=== PATIENT | female | born 1970 | race Caucasian/White ===

== ENCOUNTER → 2017-10-22 | Outpatient (CLI) | payer OTHER ==
--- NOTE | 2017-10-24 08:50 | MM ---
Reason for exam: screening (asymptomatic). Last mammogram was performed 2 years and 5 months ago. History: Family history of breast cancer in maternal grandmother at age 49. Took hormonal contraceptives for 2 years. Physical Findings: A clinical breast exam by your physician is recommended on an annual basis and results should be correlated with mammographic findings. MG 3D Screening Mammo W/Cad Bilateral CC and MLO view(s) were taken. Prior study comparison: May 19, 2015, bilateral MG screening mammo w CAD. The breast tissue is heterogeneously dense. This may lower the sensitivity of mammography. No significant changes when compared with prior studies. ASSESSMENT: Negative, BI-RAD 1 RECOMMENDATION: Routine screening mammogram of both breasts in 1 year.
== END | disposition home or self-care (01) ==
LOC: RADMAMWWP 14:05
PROVIDERS: ATTEND Family Medicine
DX: Z12.31 Encounter for screening mammogram for malignant neoplasm of breast (principal)
CPT/HCPCS: 77063; 77067

== ENCOUNTER → 2017-12-19 | Outpatient (CLI) | payer OTHER ==
--- NOTE | 2017-12-19 15:54 | CT ---
EXAMINATION TYPE: CT urogram wo/w con DATE OF EXAM: 12/19/2017 COMPARISON: NONE HISTORY: Microscopic and gross hematuria x 6-[address] DLP: 1967 mGycm CONTRAST: Performed and without and with IV Contrast, patient injected with 100 mL of Isovue M300. CT Urography was performed with unenhanced followed by enhanced images of the kidneys, ureters and ur inary bladder. Delayed images were obtained. 3d reconstruction was perfromed at a separate work sta tion. FINDINGS: KIDNEYS/BLADDER: No hydronephrosis. No nephrolithiasis. No distinct renal mass. Urinary bladder gr ossly unremarkable. LUNG BASES-: No visible nodule. No infiltrate. LIVER/GB: Small calcified gallstone noted. No space occupying hepatic lesion. Biliary tree is of norm al caliber. PANCREAS: No inflammation. No distinct mass. SPLEEN: No splenic enlargement. No lesion seen. ADRENALS: No nodule. No thickening. BOWEL: Normal appendix. Normal bowel caliber. No inflammation. GENITAL ORGANS: Lobulated appearance of the uterus is felt to reflect underlying leiomyomatous change . Left ovarian cyst measuring 1.9 cm. LYMPH NODES: No greater than 1cm abdominal or pelvic lymph nodes are appreciated. AORTA: No significant abnormality. OSSEOUS STRUCTURES: No significant abnormality is seen. OTHER: No significant additional abnormality is seen. IMPRESSION: 1. No significant abnormality to account for the patient's symptoms. 2. Cholelithiasis. 3. Fibroid uterus. 4. Left ovarian cyst.
== END ==
LOC: RADCTMAIN 14:25
PROVIDERS: ATTEND Urology
DX: K80.20 Calculus of gallbladder without cholecystitis without obstruction (principal); D25.9 Leiomyoma of uterus, unspecified; N83.202 Unspecified ovarian cyst, left side; R31.0 Gross hematuria
CPT/HCPCS: 74178; 74400; Q9967

== ENCOUNTER → 2018-01-06 | Outpatient (CLI) | payer OTHER ==
--- NOTE | 2018-01-06 14:55 | CT ---
EXAMINATION TYPE: CT brain wo/w con DATE OF EXAM: 01/06/2018 COMPARISON: NONE HISTORY: Patient complains of chronic headache, increasing in frequency and severity. CT DLP: 1710.8mGycm CONTRAST: CT scan of the head is performed with IV Contrast, patient injected with 100 mL of Isovue 300. Unenhanced followed by contrast enhanced CT of the brain is submitted for evaluation. The ventricles are midline. There is no evidence for intracranial hemorrhage or extra-axial collection. No mass e ffects are identified. Visualized bony calvarium is intact. Contrast is administered and no enhanci ng lesions are detected. No pathologic enhancement is identified. If symptoms persist consider MRI. IMPRESSION: Unremarkable CT brain.
== END | disposition home or self-care (01) ==
LOC: RADCTMAIN 14:18
PROVIDERS: ATTEND Family Medicine
DX: R51 Headache (principal)
CPT/HCPCS: 70470; Q9967

== ENCOUNTER 2018-03-03 09:53 | Inpatient (IN) | payer MEDICAID, OTHER ==
--- NOTE | 2018-03-03 11:08 | ED ---
Psych HPI - General Chief Complaint: Psychiatric Symptoms Stated Complaint: Petition Time Seen by Provider: 03/03/18 10:30 Source: patient, RN notes reviewed Mode of arrival: ambulatory - History of Present Illness Initial Comments: This is a 48-year-old female with a history of anxiety depression and rheumatoid arthritis who is brought in by family members for evaluation. Apparently she's been acting very irrational in the past week especially over last couple days. She is here under petition she apparently is been physically tachycardia and her son and sister states she hasn't vomited her vagina stated the cat is wired with the bottom been demonstrating flight of ideas not functioning well at home. She is on Prozac she believes she has no problems at this time she currently states she's actually giving the complete information until her business attorney gets here. Patient does admit that she's been smoking marijuana denies any other drug use denies any fevers chills nausea vomiting sweats or other symptoms she does states she had a complete workup recently. MD Complaint: other - Related Data Home Medications Medication Instructions Recorded Confirmed Biotin 5 mg PO DAILY 03/03/18 03/03/18 FLUoxetine HCL [PROzac] 20 mg PO DAILY 03/03/18 03/03/18 HYDROcodone/APAP 10-325MG [[place] 1 tab PO Q6HR PRN 03/03/18 03/03/18 10-325] Multivitamins, Thera [Multivitamin 1 tab PO DAILY 03/03/18 03/03/18 (formulary)] Allergies Allergy/AdvReac Type Severity Reaction Status Date / Time No Known Allergies Allergy Verified 03/03/18 10:20 Review of Systems ROS Statement: Those systems with pertinent positive or pertinent negative responses have been documented in the HPI. ROS Other: All systems not noted in ROS Statement are negative. Past Medical History Past Medical History: Rheumatoid Arthritis (RA) Additional Past Medical History / Comment(s): back pain History of Any Multi-Drug Resistant Organisms: None Reported Past Surgical History: No Surgical Hx Reported Past Psychological History: Anxiety, Depression Smoking Status: Current every day smoker Past Alcohol Use History: Rare Past Drug Use History: Marijuana General Exam - General Exam Comments Initial Comments: This is a well-developed well-nourished awake alert oriented female she is demonstrating flight of ideas and pressured speech. Limitations: no limitations General appearance: alert, anxious Head exam: Present: atraumatic, normocephalic, normal inspection Eye exam: Present: normal appearance, PERRL, EOMI. Absent: scleral icterus, conjunctival injection, periorbital swelling ENT exam: Present: normal exam, mucous membranes moist Neck exam: Present: normal inspection. Absent: tenderness, meningismus, lymphadenopathy Respiratory exam: Present: normal lung sounds bilaterally. Absent: respiratory distress, wheezes, rales, rhonchi, stridor Cardiovascular Exam: Present: regular rate, normal rhythm, normal heart sounds. Absent: systolic murmur, diastolic murmur, rubs, gallop, clicks GI/Abdominal exam: Present: soft, normal bowel sounds. Absent: distended, tenderness, guarding, rebound, rigid Extremities exam: Present: normal inspection, full ROM, normal capillary refill. Absent: tenderness, pedal edema, joint swelling, calf tenderness Back exam: Present: normal inspection Neurological exam: Present: alert, oriented X3, CN II-XII intact Psychiatric exam: Present: agitated, anxious, manic Skin exam: Present: warm, dry, intact, normal color. Absent: rash Course Vital Signs 03/03/18 09:59 Temperature 98.4 F Pulse Rate 108 H Respiratory 18 Rate Blood Pressure 133/74 O2 Sat by Pulse 97 Oximetry - Reevaluation(s) Reevaluation #1: 03/03/18 11:08 I did review the [facility] Medical Decision Making - Medical Decision Making The patient was evaluated by psychiatric service and will be admitted for inpatient treatment - Lab Data Lab Results 03/03/18 Range/Units 10:35 Urine Opiates Screen Detected H (NotDetected) Ur Oxycodone Screen Not Detected (NotDetected) Urine Methadone Screen Not Detected (NotDetected) Ur Propoxyphene Screen Not Detected (NotDetected) Ur Barbiturates Screen Not Detected (NotDetected) U Tricyclic Antidepress Not Detected (NotDetected) Ur Phencyclidine Scrn Not Detected (NotDetected) Ur Amphetamines Screen Not Detected (NotDetected) U Methamphetamines Scrn Not Detected (NotDetected) U Benzodiazepines Scrn Not Detected (NotDetected) Urine Cocaine Screen Not Detected (NotDetected) U Marijuana (THC) Screen Detected H (NotDetected) Disposition Clinical Impression: Acute psychosis, Paranoid Disposition: TRANSFER TO PSYCH HOSP/UNIT Condition: Stable Referrals: Ranjith Mendoza MD [Primary Care Provider] - 1-2 days
[2018-03-03 11:20] LABS: Amphetamine Screen,Urine Not Detected (NotDetected); Benzodiazepines Screen,Urine Not Detected (NotDetected); Cocaine Screen,Urine Not Detected (NotDetected); Methadone Screen, Urine Not Detected (NotDetected); Opiate Screen,Urine Detected (NotDetected); Phencyclidine Screen,Urine Not Detected (NotDetected); Tricyclic Antidepressant,Urine Not Detected (NotDetected); Urn Cannabinoid Scrn Detected (NotDetected)
[2018-03-03 11:21] LABS: Barbiturate Screen,Urine Not Detected (NotDetected); Oxycodone Screen, Urine Not Detected (NotDetected)
[2018-03-03] MEDS ORDERED: HYDROcodone/APAP 5-325MG 1 EACH TAB ONE (15:30)
[2018-03-03 16:49] LABS: Appearance,Urine Clear (Clear); Bacteria,Urine Rare /hpf; Bilirubin,Urine Negative (Negative); Blood,Urine Moderate (Negative); Color,Urine Light Yellow; Glucose,Urine (UA) Negative (Negative); Ketones,Urine Negative (Negative); Leukocyte Esterase,Urine Trace (Negative); Mucus,Urine Rare /hpf; Nitrite,Urine Negative (Negative); Protein,Urine Negative (Negative); RBC,Urine 3 /hpf (0-5); Specific Gravity,Urine 1.006 (1.001-1.035); Squamous Epithelial Cell,Urine 1 /hpf (0-4); Urobilinogen,Urine <2.0 mg/dL (<2.0); WBC,Urine 1 /hpf (0-5)
[2018-03-03 16:49] LABS: Basophils % (A) 0 %; Eosinophils # (A) 0.2 k/uL (0-0.7); Eosinophils % (A) 2 %; HCT 38.1 % (34.0-46.0); HGB 12.5 gm/dL (11.4-16.0); Lymphocytes # (A) 1.5 k/uL (1.0-4.8); Lymphocytes % (A) 17 %; MCH 30.4 pg (25.0-35.0); MCHC 32.8 g/dL (31.0-37.0); MCV 92.6 fL (80.0-100.0); Monocytes # (A) 0.8 k/uL (0-1.0); Monocytes % (A) 9 %; Neutrophils # (A) 6.3 k/uL (1.3-7.7); Neutrophils % (A) 71 %; Platelet Count 223 k/uL (150-450); RBC 4.11 m/uL (3.80-5.40); RDW 14.9 % (11.5-15.5); WBC 8.9 k/uL (3.8-10.6)
[2018-03-03 17:01] LABS: ALT 33 U/L (9-52); AST 29 U/L (14-36); Alkaline Phosphatase 54 U/L (38-126); Anion Gap 10 mmol/L; Blood Urea Nitrogen 14 mg/dL (7-17); Calcium 9.1 mg/dL (8.4-10.2); Carbon Dioxide 26 mmol/L (22-30); Chloride 106 mmol/L (98-107); Glucose 103 mg/dL (74-99); Potassium 3.7 mmol/L (3.5-5.1); Sodium 142 mmol/L (137-145); Total Bilirubin 0.1 mg/dL (0.2-1.3); Total Protein 6.6 g/dL (6.3-8.2)
--- NOTE | 2018-03-03 18:08 | P.CONS ---
History of Present Illness - Reason for Consult Medical clearance - History of Present Illness 48-year-old pleasant female admitted for aggressive anxiety patient. Patient denied any fever chills nausea vomiting. Patient denied any dysuria. Patient is a smoker willing to quit smoking Review of Systems REVIEW OF SYSTEMS: CONSTITUTIONAL: No fever, no malaise, no fatigue. HEENT: No recent visual problems or hearing problems. Denied any sore throat. CARDIOVASCULAR: No chest pain, orthopnea, PND, no palpitations, no syncope. PULMONARY: No shortness of breath, no cough, no hemoptysis. GASTROINTESTINAL: No diarrhea, no nausea, no vomiting, no abdominal pain. Normoactive bowel sounds. NEUROLOGICAL: No headaches, no weakness, no numbness. HEMATOLOGICAL: Denies any bleeding or petechiae. GENITOURINARY: Denies any burning micturition, frequency, or urgency. MUSCULOSKELETAL/RHEUMATOLOGICAL: Denies any joint pain, swelling, or any muscle pain. ENDOCRINE: Denies any polyuria or polydipsia. The rest of the 14-point review of systems is negative. Past Medical History Past Medical History: Rheumatoid Arthritis (RA) Additional Past Medical History / Comment(s): back pain History of Any Multi-Drug Resistant Organisms: None Reported Past Surgical History: No Surgical Hx Reported Past Psychological History: Anxiety, Depression Smoking Status: Current every day smoker Past Alcohol Use History: Rare Past Drug Use History: Marijuana Medications and Allergies Home Medications Medication Instructions Recorded Confirmed Type Biotin 5 mg PO DAILY 03/03/18 03/03/18 History FLUoxetine HCL [PROzac] 20 mg PO DAILY 03/03/18 03/03/18 History HYDROcodone/APAP 10-325MG [[place] 1 tab PO Q6HR PRN 03/03/18 03/03/18 History 10-325] Multivitamins, Thera [Multivitamin 1 tab PO DAILY 03/03/18 03/03/18 History (formulary)] Allergies Allergy/AdvReac Type Severity Reaction Status Date / Time No Known Allergies Allergy Verified 03/03/18 10:20 Physical Exam Vitals: Vital Signs Temp Pulse Resp BP Pulse Ox 03/03/18 09:59 98.4 F 108 H 18 133/74 97 Intake and Output 03/03/18 03/03/18 03/03/18 06:59 14:59 22:59 Other: Weight 63.503 kg PHYSICAL EXAMINATION: GENERAL: The patient is alert and oriented x3, not in any acute distress. Well developed, well nourished. HEENT: Pupils are round and equally reacting to light. EOMI. No scleral icterus. No conjunctival pallor. Normocephalic, atraumatic. No pharyngeal erythema. No thyromegaly. CARDIOVASCULAR: S1 and S2 present. No murmurs, rubs, or gallops. PULMONARY: Chest is clear to auscultation, no wheezing or crackles. ABDOMEN: Soft, nontender, nondistended, normoactive bowel sounds. No palpable organomegaly. MUSCULOSKELETAL: No joint swelling or deformity. EXTREMITIES: No cyanosis, clubbing, or pedal edema. NEUROLOGICAL: Gross neurological examination did not reveal any focal deficits. SKIN: No rashes. Results CBC & Chem 7: 03/03/18 16:40 03/03/18 16:40 Labs: Abnormal Lab Results - Last 24 Hours (Table) 03/03/18 03/03/18 Range/Units 10:35 16:40 Glucose 103 H (74-99) mg/dL Total Bilirubin 0.1 L (0.2-1.3) mg/dL Urine Blood Moderate H (Negative) Ur Leukocyte Esterase Trace H (Negative) Urine Bacteria Rare H (None) /hpf Urine Mucus Rare H (None) /hpf Urine Opiates Screen Detected H (NotDetected) U Marijuana (THC) Screen Detected H (NotDetected) Assessment and Plan Plan: -Major depression: Management as per primary service -Nicotine abuse and marijuana use: Counseling was provided -Asymptomatic bacteriuria will not require any antibiotics.
[2018-03-03] MEDS ORDERED: ACETAMINOPHEN TAB 325 MG TAB PO PRN (18:10)
[2018-03-03] MEDS ORDERED: ZIPRASIDONE 20 MG VIAL IM PRN (18:10)
[2018-03-03] MEDS: HYDROcodone/APAP 5-325MG 1 EACH TAB PO PRN (20:30)
[2018-03-03] MEDS ORDERED: HYDROcodone/APAP 5-325MG 1 EACH TAB PO SCH (21:00)
[2018-03-04] MEDS: LORazepam 1 MG TAB PO PRN ×2 (06:17→14:03)
[2018-03-04] MEDS: HYDROcodone/APAP 5-325MG 1 EACH TAB PO PRN (09:03)
[2018-03-04] MEDS: FLUoxetine HCL 20 MG CAP PO SCH (09:04)
[2018-03-04] MEDS ORDERED: cloNIDine HCL 0.2 MG TAB PO PRN (10:00)
[2018-03-04] MEDS ORDERED: DIPHENOX-ATROP 2.5-0.025 MG 1 EACH TAB PO PRN (10:02)
[2018-03-04] MEDS ORDERED: ONDANSETRON 4 MG TAB PO PRN (10:02)
[2018-03-04] MEDS: NICOTINE 14MG/24HR PATCH TRANSDERM SCH (10:21)
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
[2018-03-04 11:11] LABS: Basophils % (A) 1 %; Eosinophils # (A) 0.1 k/uL (0-0.7); Eosinophils % (A) 2 %; HCT 40.6 % (34.0-46.0); HGB 13.1 gm/dL (11.4-16.0); Lymphocytes # (A) 1.2 k/uL (1.0-4.8); Lymphocytes % (A) 22 %; MCH 30.1 pg (25.0-35.0); MCHC 32.3 g/dL (31.0-37.0); MCV 93.1 fL (80.0-100.0); Mean Platelet Volume 7.6; Monocytes # (A) 0.4 k/uL (0-1.0); Monocytes % (A) 7 %; Neutrophils # (A) 3.7 k/uL (1.3-7.7); Neutrophils % (A) 67 %; Platelet Count 237 k/uL (150-450); RBC 4.36 m/uL (3.80-5.40); WBC 5.6 k/uL (3.8-10.6)
[2018-03-04 11:24] LABS: ALT 31 U/L (9-52); AST 32 U/L (14-36); Albumin 4.2 g/dL (3.5-5.0); Alkaline Phosphatase 59 U/L (38-126); Anion Gap 11 mmol/L; Blood Urea Nitrogen 13 mg/dL (7-17); Calcium 9.4 mg/dL (8.4-10.2); Carbon Dioxide 25 mmol/L (22-30); Chloride 106 mmol/L (98-107); Cholesterol 148 mg/dL (<200); Glucose 85 mg/dL (74-99); HDL Cholesterol 38 mg/dL (40-60); LDL Cholesterol,Calculated 95 mg/dL (0-99); Potassium 4.4 mmol/L (3.5-5.1); Sodium 142 mmol/L (137-145); Total Bilirubin 0.4 mg/dL (0.2-1.3); Total Protein 6.8 g/dL (6.3-8.2); Triglycerides 74 mg/dL (<150)
[2018-03-04] MEDS: MULTIVITAMINS, THERA 1 EACH TAB PO SCH ×2 (13:59→14:54)
[2018-03-04] MEDS: IBUPROFEN 600 MG TAB PO PRN (14:03)
[2018-03-04] MEDS: ARIPiprazole 2 MG TAB PO SCH (14:53)
[2018-03-05] MEDS: IBUPROFEN 600 MG TAB PO PRN ×3 (01:58→16:31)
[2018-03-05] MEDS: LORazepam 1 MG TAB PO PRN ×3 (01:59→20:22)
[2018-03-05 06:59] LABS: Appearance,Urine Cloudy (Clear); Bilirubin,Urine Negative (Negative); Blood,Urine Trace (Negative); Color,Urine Yellow; Glucose,Urine (UA) Negative (Negative); Ketones,Urine Trace (Negative); Leukocyte Esterase,Urine Small (Negative); Mucus,Urine Rare /hpf; Nitrite,Urine Negative (Negative); PH, Urine 5.5 (5.0-8.0); Protein,Urine Trace (Negative); RBC,Urine 22 /hpf (0-5); Specific Gravity,Urine 1.024 (1.001-1.035); Squamous Epithelial Cell,Urine 12 /hpf (0-4); Urobilinogen,Urine <2.0 mg/dL (<2.0); WBC,Urine 5 /hpf (0-5)
[2018-03-05] MEDS: NICOTINE 14MG/24HR PATCH TRANSDERM SCH (07:56)
[2018-03-05] MEDS: ARIPiprazole 2 MG TAB PO SCH (07:56)
[2018-03-05] MEDS: MULTIVITAMINS, THERA 1 EACH TAB PO SCH (07:56)
[2018-03-05] MEDS: FLUoxetine HCL 20 MG CAP PO SCH (07:56)
[2018-03-05 11:03] LABS: Hemoglobin A1C 5.7 % (4.0-6.0)
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
[2018-03-06] MEDS: IBUPROFEN 600 MG TAB PO PRN ×2 (07:01→15:09)
[2018-03-06] MEDS: LORazepam 1 MG TAB PO PRN ×3 (07:02→23:01)
[2018-03-06] MEDS: FLUoxetine HCL 20 MG CAP PO SCH (08:33)
[2018-03-06] MEDS: MULTIVITAMINS, THERA 1 EACH TAB PO SCH (08:33)
[2018-03-06] MEDS: NICOTINE 14MG/24HR PATCH TRANSDERM SCH (08:33)
[2018-03-06] MEDS: ARIPiprazole 5 MG TAB PO SCH (08:33)
[2018-03-06] MEDS: MAGNESIUM HYDROXIDE 2,400 MG/10 ML CUP PO PRN (15:11)
--- NOTE | 2018-03-06 16:22 | P.PN ---
Subjective Progress Note Date: 03/06/18 Principal diagnosis: Antidepressant-induced marah with psychosis, opiate use disorder severe, opiate withdrawal, rule out bipolar disorder, rule out schizoaffective disorder I reviewed the medical record, interviewed the patient and discussed her treatment and treatment plan during team meeting. She denied feeling paranoid, experiencing auditory hallucinations or having "doomsday" beliefs. She denied side effects to the Abilify. We reviewed her history with with the aim to identify what may have contributed to her psychosis. She stated that she had been prescribed Prozac by her primary care physician "for many years" but she had never took the medication consistently. Beginning in August she described feeling very depressed. She began taking the Prozac every day. She noticed a marked increase in energy and felt since euphoria. The psychotic symptoms including paranoia, delusional beliefs, ideas reference, impulsive behavior and agitation developed after she was taking Prozac for approximately 4 months. She is also preoccupied with resuming prescriptions for narcotic pain medications. She ruminated on having "RA" and alleged the only medication that could relieve the pain caused by her "RA" was Vicodin. She stated that she no longer has a problem with abuse or misuse of opiate pain medications. Neither I nor the high school social studies teacher were able to reach her sister to obtain collateral information. She slept 5 hours last night and has attended most therapeutic groups and activities. Objective - Vital Signs Vital signs: Vital Signs Temp 98.1 F 03/06/18 06:16 Pulse 80 03/06/18 06:16 Resp 18 03/06/18 06:16 BP 124/61 03/06/18 06:16 Pulse Ox 96 03/06/18 06:16 - Psychiatric Psychiatric Comment(s): She presented as a thin casually dressed and groomed middle-aged female who was pleasant on approach. She made eye contact and attended to the interview. She had a distressed facial expression and cried intermittently during the interview. She showed slight psychomotor retardation but no abnormal movements. She was not agitated or restless. Her speech was spontaneous with normal rate, rhythm and volume. Her affect was depressed but stable and appropriate. She denied suicidal ideation or wishes. She denied feeling hopeless, helpless or worthless. She did not express ideas reference, paranoid ideation, magical ideation or delusions. Her thinking was abstract and associations were coherent, logical and goal directed. She denied hallucinations and did not appear to be responding to internal stimuli. - Labs CBC & Chem 7: 03/04/18 10:50 03/04/18 10:50 Assessment and Plan Assessment: Based on information available appears that she developed a antidepressant- induced marah and psychosis. The symptoms have abated since admission with Abilify. The question is whether she has a bipolar variant illness. (1) Other psychoactive substance use, unspecified with psychoactive substance- induced mood disorder Current Visit: Yes Status: Acute Code(s): F19.94 - OTH PSYCHOACTIVE SUBSTANCE USE, UNSP W MOOD DISORDER SNOMED Code(s): 83444195 (2) Opioid use disorder, severe, dependence Current Visit: Yes Status: Acute Code(s): F11.20 - OPIOID DEPENDENCE, UNCOMPLICATED SNOMED Code(s): 28834877 (3) Opioid withdrawal Current Visit: Yes Status: Acute Code(s): F11.23 - OPIOID DEPENDENCE WITH WITHDRAWAL SNOMED Code(s): 18760581 Plan: Continue inpatient hospitalization. Safety precautions. Discontinue Prozac. Continue Abilify to 5 mg daily. Continue symptomatic treatment of opiate withdrawal symptoms. Obtain collateral information from family. Encourage participation in therapeutic groups and activities. Evaluate clinical status response to treatment on a daily basis.
[2018-03-06] MEDS: MAG HYDROX/AL HYDROX/SIMETH 30 ML CUP PO PRN (18:08)
[2018-03-07] MEDS: LORazepam 1 MG TAB PO PRN ×2 (07:17→15:53)
[2018-03-07] MEDS: MULTIVITAMINS, THERA 1 EACH TAB PO SCH (08:09)
[2018-03-07] MEDS: ARIPiprazole 5 MG TAB PO SCH (08:09)
[2018-03-07] MEDS: NICOTINE 14MG/24HR PATCH TRANSDERM SCH (08:09)
[2018-03-07] MEDS: IBUPROFEN 600 MG TAB PO PRN ×2 (08:11→15:51)
[2018-03-07] MEDS: MAGNESIUM HYDROXIDE 2,400 MG/10 ML CUP PO PRN (15:51)
[2018-03-07] MEDS ORDERED: ARIPiprazole 5 MG TAB PO ONE (16:00)
--- NOTE | 2018-03-07 17:37 | PN ---
PROGRESS NOTE DATE OF SERVICE: 03/07/2018. CHIEF COMPLAINT: The patient had delusions and disorganized and aggressive behavior. She had paranoid thinking. She was admitted on petition for involuntary hospitalization. INTERVAL HISTORY The patient had a quiet evening last night. She slept fair. She has been sleeping about 5 hours a night. Today she has been up. She attends groups. She has had a lot of mood changes. She has had some periods where she gets angry. She frequently has had tearful episodes. She has been appropriate in groups and social interaction. She comes out in the day area. It is noteworthy that she describes a history of mood swings consistent with bipolar disorder. She describes going back at least to her early 20s if not late teens where she would have episodes that would last a week or so where she gets high energy, decreased need for sleep, racing thoughts and impulsive behavior. She says she would have these episodes intermittently and then her mood would be even out. She also would have some periods of down mood, though she says she never had serious depression in her 20s or 30s. She notes that she has started having more episodes of depression in her 40s. She typically relates depression to issues going on in her life. She notes that of late she also has had high energy, racing thoughts in a fairly intense manner, becoming hyperverbal and not needing much sleep. She noted more serious depression going back to August. She also notes significant problems with opioid abuse. She notes that since coming into the hospital, she feels somewhat improved in her mood. She has a better outlook. She is able to talk about a number of stress issues that she feels are ongoing in her life. She tolerates her psychotropic medications. MENTAL STATUS: Patient gave fair eye contact. She was quite restless. She answered questions appropriately. It was also noted that she was fairly hyperverbal with pressured speech. She seemed to show some pressured speech. At times, it would be a little difficult to interrupt her. Her affect was intense. Her mood somewhat elevated , though she also had some irritability as well. She seemed moderately distressed. There was no indication of thought disorder. ASSESSMENT AND PLAN: I will continue the current diagnosis and treatment plan. We will continue to engage the patient in individual and group therapeutic activities. I will increase the patient's Abilify from 5 mg a day up to 10 mg a day. I had an extensive discussion with the patient regarding the likely diagnosis of bipolar disorder. We discussed treatment options including lithium, antipsychotic/mood stabilizers and antiseizure medications. We also talked about treatment for bipolar depression. 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 We discussed long-term risks related to the condition. We also talked about risks relating to her medications including metabolic syndrome. We will continue to focus on stabilization and discharge planning. I reviewed the medical record and reviewed progress with staff. The patient was interviewed. MARISA / ELIDA: [id number] / SWATHI
[2018-03-08] MEDS: LORazepam 1 MG TAB PO PRN ×3 (00:38→16:11)
[2018-03-08] MEDS: MAGNESIUM HYDROXIDE 2,400 MG/10 ML CUP PO PRN ×2 (00:38→16:12)
[2018-03-08] MEDS: NICOTINE 14MG/24HR PATCH TRANSDERM SCH (08:15)
[2018-03-08] MEDS: IBUPROFEN 600 MG TAB PO PRN (08:15)
[2018-03-08] MEDS ORDERED: ARIPiprazole 10 MG TAB PO SCH (09:00)
[2018-03-08] MEDS ORDERED: ARIPiprazole 5 MG TAB PO ONE (11:45)
--- NOTE | 2018-03-08 12:17 | PN ---
PROGRESS NOTE DATE OF SERVICE: 03/08/2018. CHIEF COMPLAINT: The patient had delusions and disorganized and aggressive behavior. She had paranoid thinking. She was admitted on petition for involuntary hospitalization. INTERVAL HISTORY: Patient has been doing fairly well. She had a quiet evening last night. She slept well. Today she has been up. She comes out in the day area. She attends groups. She generally has a calm manner. She seems a little withdrawn at times though at other times she can be fairly social and bright in her affect. She is focused on discharge planning. She is hopeful to be discharged soon. I provided her information on bipolar disorder. She said she read the information and would be in agreement with a diagnosis of bipolar disorder that she has had at a more moderate level going back to her early 20s. As noted she has struggled more with depression since her since she turned 38. She did raise concern about her hydrocodone being discontinued. She has been on hydrocodone prior to admission for some chronic pain complaints. 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 She asked about how chronic pain issues can be better managed. I had an extensive discussion with the patient relating to opioids. I noted that it would have been reasonable to taper her off of hydrocodone over a few or several days, but that overall I would recommend that she be off opioid pain medications altogether. We discussed withdrawal issues that she might expect from opioids and that beyond the 6 week point, she would likely find better pain management with non opioid medications. Pain management might include a therapeutic physical activity program, anti-inflammatory medications and medications to manage her bipolar condition. We again reviewed issues relating to bipolar disorder. The patient tolerates Abilify as her primary psychotropic. She was comfortable with the idea of increasing the dose given that she recognized problems with mood disorder that have been more difficult over the last several months if not longer. MENTAL STATUS: Patient gave good eye contact. She was a little restless. Her thoughts were clear. She was spontaneous and interactive. Her affect was somewhat intense at times. She had a distressed manner when she talked about discharge planning and being hopeful that she could be discharged soon. Her mood was reserved. She did not appear to be significantly distressed. There was no indication of thought disorder. ASSESSMENT AND PLAN: I will continue the current diagnosis and treatment plan. I will increase Abilify to 15 mg a day. I discussed medication for management of bipolar disorder. I reviewed issues related to opioid pain medications. I recommended that she not continue on opioid pain medications and that over several weeks she is likely to see improvement of pain management, though also with benefits to her underlying mood disorder. I will increase ibuprofen to 800 mg 3 times a day. In addition, it is noted that she has been prescribed clonidine p.r.n. I suspect the indication was for relating to opioid withdrawal. The patient runs low to average blood pressure, though notes in the past that she had taken clonidine and had significant drop in blood pressure. As such, I will discontinue clonidine. The patient has a family meeting set up for tomorrow. Her preference would be to have 1 or 2 of her children come in, which is appropriate. I would anticipate utilizing a family meeting as part of discharge planning. I would anticipate the patient being discharged early in the week. I reviewed medical records and reviewed progress with staff. The patient was interviewed. MARISA / ELIDA: [id number] / SWATHI
[2018-03-08] MEDS: IBUPROFEN 800 MG TAB PO SCH ×2 (12:49→17:54)
[2018-03-08] MEDS: MAG HYDROX/AL HYDROX/SIMETH 30 ML CUP PO PRN (12:49)
[2018-03-08] MEDS: MULTIVITAMINS, THERA 1 EACH TAB PO SCH (12:50)
[2018-03-09] MEDS: LORazepam 1 MG TAB PO PRN ×3 (00:59→16:56)
[2018-03-09] MEDS: ARIPiprazole 15 MG TAB PO SCH (08:41)
[2018-03-09] MEDS: NICOTINE 14MG/24HR PATCH TRANSDERM SCH (08:41)
[2018-03-09] MEDS: IBUPROFEN 800 MG TAB PO SCH ×3 (08:41→17:52)
[2018-03-09] MEDS: MULTIVITAMINS, THERA 1 EACH TAB PO SCH (13:24)
--- NOTE | 2018-03-09 15:07 | P.PN ---
Progress Note - Text Progress Note Date: 03/09/18 Interval History: Patient is a 48-year-old female she reports that her racing thoughts have decreased and her focus has improved. She states that she is sleeping about 7 hours a night and her eating has improved as well. Patient reports that she is not feeling suspicious or paranoid at this time and has been attending groups and activities. Patient states that she was at [facility] in August 2017 for treatment for opioids and benzodiazepines. Patient states that she had been taking opiates for her pain secondary to rheumatoid arthritis which was diagnosed when she was 28 years of age. Patient states that she then began using benzodiazepines and had increasing difficulties. Patient is currently on Abilify which was recently increased to 15 mg a day and is now on ibuprofen 800 mg 3 times a day and she states that that is not been helpful for her pain. Patient's opioids have been discontinued. Patient denied any suicidal ideation and states that she is not hearing voices. Mental Status:Appearance/Attitude: Patient is appropriately dressed, makes eye contact and is cooperative. Behavior: Patient does not exhibit any psychomotor agitation or retardation. Speech/Language: Speech is spontaneous of normal volume and rhythm and she is coherent Thought Process: Patient is goal-directed there is no evidence of loose association or flight of ideas. Patient reports her focus has improved. Thought Content: Patient denies any auditory or visual hallucinations no delusions or paranoid ideation or elicited. Patient states she is no longer feeling suspicious. She reports her appetite and sleep have improved and she slept for 7 hours last night. Patient states that she is feeling more stable Suicidal/Homicidal Ideation: Patient denies any current suicidal or homicidal ideation Sensorium/Cognition: Patient is alert and oriented to person, place, and time and her recent and remote memory are grossly intact. Mood/Affect: patient's mood is stable and her affect is appropriate Insight/Judgment: patient's insight and judgment are fair Assessment: patient's Abilify was recently increased to 15 mg and her ibuprofen increased 800 mg 3 times a day. Patient reports that her focus is improved and her appetite and sleep have also improved. Patient states that she is no longer feeling suspicious and denied any suicidal or homicidal ideation. Patient has been attending groups and activities. Patient states that she was living with someone and is not going to return to live with him and will be living with her sister. Patient had been using benzodiazepines and opioids and wasn't [facility] in August 2017 for this. Patient was on opioids at her admission secondary to pain from rheumatoid arthritis. Patient discussed that she is to try a new treatment for her rheumatoid arthritis but is yet to begin the medication. Patient reports no side effects from her Abilify and states that the ibuprofen is not as effective in treating her pain. Patient had a family meeting today. Plan: Patient continue on Abilify 15 mg daily to target her mood and psychotic symptoms and will also continue on ibuprofen and her milligrams 3 times a day for her pain. Patient and I discussed possible discharge tomorrow when she was agreeable with this plan. [facility] Patient was encouraged to follow-up with her information systems project manager regarding treatment for her rheumatoid arthritis.
[2018-03-10] MEDS: LORazepam 1 MG TAB PO PRN ×2 (01:18→08:35)
[2018-03-10 01:21] VITALS: BP 102/62; PULSE 92; RESP 16; TEMP 98
[2018-03-10] MEDS: IBUPROFEN 800 MG TAB PO SCH ×2 (07:44→12:57)
[2018-03-10] MEDS: NICOTINE 14MG/24HR PATCH TRANSDERM SCH (07:44)
[2018-03-10] MEDS: ARIPiprazole 15 MG TAB PO SCH (07:44)
[2018-03-10] MEDS: MULTIVITAMINS, THERA 1 EACH TAB PO SCH (07:45)
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
== END 2018-03-10 12:32 | disposition home or self-care (01) | DRG 885 ==
LOC: EC 09:53 → 3MHU 13:44
PROVIDERS: ADMIT Psychiatry & Neurology Psychiatry; ATTEND Psychiatry & Neurology Psychiatry
DX: F31.9 Bipolar disorder, unspecified (principal); F11.23 Opioid dependence with withdrawal; F17.200 Nicotine dependence, unspecified, uncomplicated; F41.9 Anxiety disorder, unspecified; G89.29 Other chronic pain; M06.9 Rheumatoid arthritis, unspecified; Z79.899 Other long term (current) drug therapy; Z79.891 Long term (current) use of opiate analgesic; Z71.6 Tobacco abuse counseling; Z71.51 Drug abuse counseling and surveillance of drug abuser
CPT/HCPCS: 80053; 80061; 80306; 81001; 82075; 83036; 84443; 85025

== ENCOUNTER 2019-03-13 17:10 | Emergency (ER) | payer OTHER ==
[2019-03-13 17:33] VITALS: RESP 18
--- NOTE | 2019-03-13 18:39 | ED ---
General Adult HPI - General Chief complaint: Psychiatric Symptoms Stated complaint: EPS eval Time Seen by Provider: 03/13/19 17:22 Source: patient, RN notes reviewed Mode of arrival: ambulatory Limitations: no limitations - History of Present Illness Initial comments: 49-year-old female presents to the emergency department for a chief complaint of possible manic episode. Patient states she was diagnosed with bipolar disorder about a year ago. States she was put on medications but quickly stopped taking them because they were "stronger drugs." Patient states that over the past month or so she has felt that she is in a manic episode. States she has not been eating or sleeping well for the past month. States that her thoughts are racing and she feels very destructive. Patient denies any suicidal thoughts or thoughts of harming herself. She denies any thoughts of harming anyone. Denies any hallucinations or delusions.Patient has no other complaints at this time including shortness of breath, chest pain, abdominal pain, nausea or vomiting, headache, or visual changes. - Related Data Home Medications Medication Instructions Recorded Confirmed Hydrocodone/Acetaminophen [[place] 1 tab PO QID 03/13/19 03/13/19 10-325] traZODone HCL 100 mg PO HS 03/13/19 03/13/19 Allergies Allergy/AdvReac Type Severity Reaction Status Date / Time No Known Allergies Allergy Verified 03/13/19 18:24 Review of Systems ROS Statement: Those systems with pertinent positive or pertinent negative responses have been documented in the HPI. ROS Other: All systems not noted in ROS Statement are negative. Past Medical History Past Medical History: Rheumatoid Arthritis (RA) Additional Past Medical History / Comment(s): back pain History of Any Multi-Drug Resistant Organisms: None Reported Past Surgical History: No Surgical Hx Reported Past Psychological History: Anxiety, Depression Smoking Status: Current every day smoker Past Alcohol Use History: Occasional Past Drug Use History: Marijuana General Exam Limitations: no limitations General appearance: alert, in no apparent distress Head exam: Present: atraumatic, normocephalic, normal inspection Eye exam: Present: normal appearance, PERRL, EOMI. Absent: scleral icterus, conjunctival injection ENT exam: Present: normal exam, mucous membranes moist Neck exam: Present: normal inspection, full ROM. Absent: tenderness, meningismus, lymphadenopathy Respiratory exam: Present: normal lung sounds bilaterally. Absent: respiratory distress, wheezes, rales, rhonchi, stridor Cardiovascular Exam: Present: regular rate, normal rhythm, normal heart sounds. Absent: systolic murmur, diastolic murmur, rubs, gallop, clicks GI/Abdominal exam: Present: soft, normal bowel sounds. Absent: distended, tenderness, guarding, rebound, rigid Neurological exam: Present: alert, oriented X3, CN II-XII intact Psychiatric exam: Present: normal affect, normal mood Course Vital Signs 03/13/19 17:27 Temperature 98.3 F Pulse Rate 94 Respiratory 18 Rate Blood Pressure 127/78 O2 Sat by Pulse 95 Oximetry Medical Decision Making - Medical Decision Making 49 year old female presents to the emergency department for chief complaint of possible manic episode. Diagnosed with bipolar disorder 1 year, noncompliant in medications. States she was put on medications but quickly stopped taking them because they were strong drugs. States over the past month or so she has felt that she is in a manic episode and has not been eating or sleeping well. She states she has racing thoughts. However no thoughts of harming herself or anyone else. No hallucinations or delusions. Patient was evaluated by EPS. Psychiatrist Dr. Anguiano recommends outpatient follow-up. Patient is agreeable to this "as long as I get my pain medication." - Lab Data Lab Results 03/13/19 Range/Units 18:49 Urine Opiates Screen Detected H (NotDetected) Ur Oxycodone Screen Not Detected (NotDetected) Urine Methadone Screen Not Detected (NotDetected) Ur Propoxyphene Screen Not Detected (NotDetected) Ur Barbiturates Screen Not Detected (NotDetected) U Tricyclic Antidepress Not Detected (NotDetected) Ur Phencyclidine Scrn Not Detected (NotDetected) Ur Amphetamines Screen Not Detected (NotDetected) U Methamphetamines Scrn Not Detected (NotDetected) U Benzodiazepines Scrn Not Detected (NotDetected) Urine Cocaine Screen Not Detected (NotDetected) U Marijuana (THC) Screen Detected H (NotDetected) Disposition Clinical Impression: Depression Disposition: HOME SELF-CARE Condition: Good Instructions (If sedation given, give patient instructions): Bipolar Disorder (ED), Depression (ED) Additional Instructions: Please follow up with primary care in 1-2 days. Please return to the emergency department if you have any worsening symptoms. Is patient prescribed a controlled substance at d/c from ED?: No Referrals: Tiny Anthony MD [STAFF PHYSICIAN] - 1-2 days Time of Disposition: 20:06
[2019-03-13] MEDS ORDERED: HYDROcodone/APAP 5-325MG 1 EACH TAB PO STA (19:11)
[2019-03-13 19:13] LABS: Urn Cannabinoid Scrn Detected (NotDetected)
[2019-03-13 19:14] LABS: Amphetamine Screen,Urine Not Detected (NotDetected); Barbiturate Screen,Urine Not Detected (NotDetected); Benzodiazepines Screen,Urine Not Detected (NotDetected); Cocaine Screen,Urine Not Detected (NotDetected); Methadone Screen, Urine Not Detected (NotDetected); Opiate Screen,Urine Detected (NotDetected); Oxycodone Screen, Urine Not Detected (NotDetected); Phencyclidine Screen,Urine Not Detected (NotDetected); Tricyclic Antidepressant,Urine Not Detected (NotDetected)
[2019-03-13 21:43] VITALS: BP 122/70; PULSE 78; TEMP 98.2
== END 2019-03-13 20:55 | disposition home or self-care (01) ==
LOC: EC 17:10
DX: F32.9 Major depressive disorder, single episode, unspecified (principal); M06.9 Rheumatoid arthritis, unspecified; F41.9 Anxiety disorder, unspecified; F17.200 Nicotine dependence, unspecified, uncomplicated; Z79.891 Long term (current) use of opiate analgesic; Z79.899 Other long term (current) drug therapy
CPT/HCPCS: 80306; 82075; 99284

== ENCOUNTER 2019-03-15 15:37 | Inpatient (IN) | payer MEDICAID, OTHER ==
--- NOTE | 2019-03-15 16:05 | ED ---
General Adult HPI - General Chief complaint: Psychiatric Symptoms Stated complaint: mental health Time Seen by Provider: 03/15/19 15:46 Source: patient, family, RN notes reviewed Mode of arrival: ambulatory Limitations: no limitations - History of Present Illness Initial comments: Patient is a pleasant 49-year-old female presenting to the emergency department with family for mental health evaluation. Patient states she was here yesterday and was told to return today when beds would be opened. Patient states she has not been sleeping well. Patient states she does have racing thoughts and is unclear what is reality. Patient did have similar episodes however worse one year ago and was diagnosed with bipolar and admitted to the hospital at that time. Patient denies suicidal or homicidal thoughts. Patient is unclear whether or not she is having hallucinations. - Related Data Home Medications Medication Instructions Recorded Confirmed Hydrocodone/Acetaminophen [[place] 1 tab PO QID 03/13/19 03/15/19 10-325] traZODone HCL 100 mg PO HS 03/13/19 03/15/19 Hydroxychloroquine Sulfate 200 mg PO BID 03/15/19 03/15/19 [Plaquenil] Ibuprofen [Motrin] 600 mg PO Q8HR PRN 03/15/19 03/15/19 Allergies Allergy/AdvReac Type Severity Reaction Status Date / Time No Known Allergies Allergy Verified 03/15/19 16:16 Review of Systems ROS Statement: Those systems with pertinent positive or pertinent negative responses have been documented in the HPI. ROS Other: All systems not noted in ROS Statement are negative. Constitutional: Denies: fever Eyes: Denies: eye pain ENT: Denies: ear pain Respiratory: Denies: cough Cardiovascular: Denies: chest pain Endocrine: Denies: fatigue Gastrointestinal: Denies: abdominal pain Genitourinary: Denies: dysuria Musculoskeletal: Denies: back pain Skin: Denies: rash Neurological: Denies: weakness Psychiatric: Reports: as per HPI Past Medical History Past Medical History: Rheumatoid Arthritis (RA) Additional Past Medical History / Comment(s): back pain History of Any Multi-Drug Resistant Organisms: None Reported Past Surgical History: No Surgical Hx Reported Past Psychological History: Bipolar Smoking Status: Current every day smoker Past Alcohol Use History: Occasional Past Drug Use History: Marijuana General Exam Limitations: no limitations General appearance: alert, in no apparent distress Head exam: Present: atraumatic Eye exam: Present: normal appearance Neck exam: Present: normal inspection Respiratory exam: Present: normal lung sounds bilaterally Cardiovascular Exam: Present: regular rate, normal rhythm GI/Abdominal exam: Present: soft. Absent: tenderness Extremities exam: Present: normal inspection Neurological exam: Present: alert Psychiatric exam: Absent: homicidal ideation, suicidal ideation Skin exam: Present: normal color Course Vital Signs 03/15/19 15:41 Temperature 98.4 F Pulse Rate 86 Respiratory 18 Rate Blood Pressure 115/73 O2 Sat by Pulse 96 Oximetry Medical Decision Making - Medical Decision Making Patient was seen by mental health services and admitted - Lab Data Lab Results 03/15/19 Range/Units 18:22 Urine Opiates Screen Not Detected (NotDetected) Ur Oxycodone Screen Not Detected (NotDetected) Urine Methadone Screen Not Detected (NotDetected) Ur Propoxyphene Screen Not Detected (NotDetected) Ur Barbiturates Screen Not Detected (NotDetected) U Tricyclic Antidepress Not Detected (NotDetected) Ur Phencyclidine Scrn Not Detected (NotDetected) Ur Amphetamines Screen Not Detected (NotDetected) U Methamphetamines Scrn Not Detected (NotDetected) U Benzodiazepines Scrn Not Detected (NotDetected) Urine Cocaine Screen Not Detected (NotDetected) U Marijuana (THC) Screen Detected H (NotDetected) Disposition Clinical Impression: Acute psychosis Disposition: TRANSFER TO PSYCH HOSP/UNIT Is patient prescribed a controlled substance at d/c from ED?: No
[2019-03-15 18:45] LABS: Amphetamine Screen,Urine Not Detected (NotDetected); Barbiturate Screen,Urine Not Detected (NotDetected); Benzodiazepines Screen,Urine Not Detected (NotDetected); Cocaine Screen,Urine Not Detected (NotDetected); Methadone Screen, Urine Not Detected (NotDetected); Opiate Screen,Urine Not Detected (NotDetected); Oxycodone Screen, Urine Not Detected (NotDetected); Phencyclidine Screen,Urine Not Detected (NotDetected); Tricyclic Antidepressant,Urine Not Detected (NotDetected); Urn Cannabinoid Scrn Detected (NotDetected)
[2019-03-15] MEDS ORDERED: LORazepam 1 MG TAB PO STA (18:59)
[2019-03-15] MEDS ORDERED: LORazepam 1 MG TAB PO PRN (21:13)
[2019-03-15] MEDS ORDERED: ACETAMINOPHEN TAB 325 MG TAB PO PRN (21:13)
[2019-03-15] MEDS ORDERED: MAGNESIUM HYDROXIDE 2,400 MG/10 ML CUP PO PRN (21:13)
[2019-03-15] MEDS ORDERED: ZIPRASIDONE 20 MG VIAL IM PRN (21:13)
[2019-03-15] MEDS ORDERED: MAG HYDROX/AL HYDROX/SIMETH 30 ML CUP PO PRN (21:13)
[2019-03-15] MEDS ORDERED: LORazepam 2 MG/ML INJ IM PRN (21:16)
--- NOTE | 2019-03-15 23:45 | P.CONS ---
History of Present Illness - Reason for Consult Consult date: 03/15/19 - History of Present Illness Patient is a 49-year-old female with a past medical history of bipolar disorder, rheumatoid arthritis and chronic lower back pain presents to the ED for a mental health evaluation with delusions, hearing voices, and being unclear of a reality. Patient was seen in the mental health unit and reported continued racing thoughts and voices. She also endorsed chronic lower back pain for which she takes [place] as an outpatient and follows with a broadcaster and pain management doctor. She otherwise denied chest pain, shortness of breath, nausea, vomiting, abdominal pain, diarrhea, headaches, or dizziness. Review of Systems Pertinent positives and negatives as discussed in HPI, a complete review of systems was performed and all other systems are negative. Past Medical History Past Medical History: Rheumatoid Arthritis (RA) Additional Past Medical History / Comment(s): back pain History of Any Multi-Drug Resistant Organisms: None Reported Past Surgical History: No Surgical Hx Reported Past Psychological History: Bipolar Smoking Status: Current every day smoker Past Alcohol Use History: Occasional Past Drug Use History: Marijuana - Past Family History Mother Family Medical History: Osteoarthritis (OA) Medications and Allergies Home Medications Medication Instructions Recorded Confirmed Type Hydrocodone/Acetaminophen [[place] 1 tab PO QID 03/13/19 03/15/19 History 10-325] traZODone HCL 100 mg PO HS 03/13/19 03/15/19 History Hydroxychloroquine Sulfate 200 mg PO BID 03/15/19 03/15/19 History [Plaquenil] Ibuprofen [Motrin] 600 mg PO Q8HR PRN 03/15/19 03/15/19 History Allergies Allergy/AdvReac Type Severity Reaction Status Date / Time No Known Allergies Allergy Verified 03/15/19 16:16 Physical Exam Vitals: Vital Signs Temp Pulse Pulse Resp BP BP Pulse Ox 03/15/19 20:23 98.6 F 94 18 118/74 03/15/19 15:41 98.4 F 86 18 115/73 96 Intake and Output 03/15/19 03/15/19 03/16/19 14:59 22:59 06:59 Other: Weight 63.503 kg General: non toxic, no distress, appears at stated age, normal weight Derm: no unusual rashes/lesions no unusual ecchymoses, warm, dry Head: atraumatic, normocephalic, symmetric Eyes: EOMI, no lid lag, anicteric sclera, pupils equal round reactive to light ENT: Nose and ears atraumatic, no thrush, no pharyngeal erythema Neck: No thyromegaly, no cervical lymphadenopathy, trachea midline, supple Mouth: no lip lesion, mucus membranes moist Cardiovascular: S1S2 reg, no murmur, positive posterior tibial pulse bilateral, no edema, capillary refill less than 2 seconds Lungs: CTA bilateral, no rhonchi, no rales , no accessory muscle use Abdominal: soft, nontender to palpation, no guarding, no appreciable organomegaly, normal bowel sounds Ext: no gross muscle atrophy, muscle strength 5 out of 5 in all 4 extremities grossly, no contractures, Neuro: CN II-XI grossly intact, light touch intact all 4 extremities, finger to nose within normal limits, Psych: Alert, oriented, appropriate affect Results Labs: Abnormal Lab Results - Last 24 Hours (Table) 03/15/19 Range/Units 18:22 U Marijuana (THC) Screen Detected H (NotDetected) Assessment and Plan Plan: Rheumatoid arthritis -Resume home medication, hydroxychloroquine Chronic lower back pain -We'll defer to psychiatry for continuation of her opiates Marijuana abuse -Advised patient on importance of cessation Psychosis -As per psychiatry Thank you for allowing us to participate in the care of this patient. We will follow peripherally. Do not hesitate to contact us with questions. Someone can be reached from the [facility] hospitalist group at all hours of the day at [phone].
[2019-03-16] MEDS: IBUPROFEN 600 MG TAB PO PRN (06:56)
[2019-03-16] MEDS: HYDROXYCHLOROQUINE SULFATE 200 MG TAB PO SCH ×2 (08:38→21:34)
[2019-03-16] MEDS: HYDROcodone/APAP 5-325MG 1 EACH TAB PO PRN ×2 (08:39→16:48)
[2019-03-16 08:47] LABS: Basophils % (A) 0 %; Eosinophils # (A) 0.1 k/uL (0-0.7); Eosinophils % (A) 1 %; HCT 40.7 % (34.0-46.0); HGB 12.6 gm/dL (11.4-16.0); Lymphocytes # (A) 0.9 k/uL (1.0-4.8); Lymphocytes % (A) 15 %; MCH 28.8 pg (25.0-35.0); MCHC 30.9 g/dL (31.0-37.0); MCV 93.2 fL (80.0-100.0); Mean Platelet Volume 7.2; Monocytes # (A) 0.3 k/uL (0-1.0); Monocytes % (A) 5 %; Neutrophils # (A) 4.7 k/uL (1.3-7.7); Neutrophils % (A) 78 %; Platelet Count 285 k/uL (150-450); RBC 4.37 m/uL (3.80-5.40); RDW 14.3 % (11.5-15.5)
[2019-03-16 09:07] LABS: ALT 13 U/L (9-52); AST 18 U/L (14-36); African American GFR (CKD) >90 (>60 ml/min/1.73 sqM); Albumin 4.3 g/dL (3.5-5.0); Alkaline Phosphatase 57 U/L (38-126); Anion Gap 8 mmol/L; Blood Urea Nitrogen 13 mg/dL (7-17); Calcium 9.3 mg/dL (8.4-10.2); Carbon Dioxide 25 mmol/L (22-30); Chloride 108 mmol/L (98-107); Cholesterol 148 mg/dL (<200); Glucose 169 mg/dL (74-99); HDL Cholesterol 38 mg/dL (40-60); LDL Cholesterol,Calculated 92 mg/dL (0-99); Sodium 141 mmol/L (137-145); Total Bilirubin 0.6 mg/dL (0.2-1.3); Total Protein 7.2 g/dL (6.3-8.2); Triglycerides 91 mg/dL (<150)
[2019-03-16] MEDS: NICOTINE 14MG/24HR PATCH TRANSDERM SCH (10:53)
[2019-03-16] MEDS: hydrOXYzine PAMOATE 25 MG CAP PO PRN ×2 (10:54→21:36)
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
[2019-03-16 18:07] LABS: Hemoglobin A1C 5.5 % (4.0-6.0)
[2019-03-16] MEDS: MELATONIN 3 MG TABLET PO SCH (21:34)
[2019-03-16] MEDS: ARIPiprazole 10 MG TAB PO SCH (21:34)
[2019-03-17] MEDS: IBUPROFEN 600 MG TAB PO PRN (06:18)
[2019-03-17 06:47] VITALS: RESP 18
[2019-03-17] MEDS: HYDROcodone/APAP 5-325MG 1 EACH TAB PO PRN ×3 (07:56→23:36)
[2019-03-17] MEDS: hydrOXYzine PAMOATE 25 MG CAP PO PRN ×2 (07:56→15:39)
[2019-03-17] MEDS: NICOTINE 14MG/24HR PATCH TRANSDERM SCH (09:30)
[2019-03-17] MEDS: HYDROXYCHLOROQUINE SULFATE 200 MG TAB PO SCH ×2 (09:30→20:55)
[2019-03-17] MEDS: LORazepam 0.5 MG TAB PO PRN ×2 (11:26→20:59)
--- NOTE | 2019-03-17 13:17 | P.PN ---
Progress Note - Text Progress Note Date: 03/17/19 Interval History: Patient is a 49-year-old female who was seen today and she reports that she is trying to accept the diagnosis of bipolar disorder and her need for medication. She states that she is feeling somewhat better today, states that her thinking has slowed a little bit and is clear. She states that she slept well last evening. Patient continues to insist that she requires Berlin for her pain but does also acknowledge that opioids of gotten her in trouble in the past and that they do make her feel more energized and she likes that feeling. Patient states that she had been given Xanax because she had been complaining that she wasn't sleeping at night. Patient was able to endorse episodes of marah as well as depression and states that she went to [facility] after her discharge from the hospital last year but did not agree with changes to her medications at [facility] wanted to make and that's why she quit going there. Mental Status: Appearance/Attitude: Patient is casually dressed, makes eye contact and was cooperative Behavior: Patient does not exhibit any psychomotor agitation or retardation. Speech/Language: Patient's speech is of normal volume and rhythm and she is coherent Thought Process: Patient is goal-directed there is no evidence of loose association or flight of ideas and she states that she is not having her thoughts jump from one idea to another. Thought Content: Patient denies any current auditory or visual hallucinations and no delusions or paranoid ideation or elicited. Patient discussed accepting her diagnosis, stating that she slept well last night and her appetite is good. Patient states that she continues to need Berlin for her pain but also acknowledge that it makes her feel energized. Suicidal/Homicidal Ideation: Patient denies any current suicidal or homicidal ideation Sensorium/Cognition: Patient is alert and oriented to person, place and time and her recent and remote memory are grossly intact and the patient says that she is better able to focus and concentrate today Mood/Affect: Patient's mood is more stable and her affect is appropriate Insight/Judgment: Patient's insight and judgment are fair Assessment: Patient and I had a long discussion regarding her diagnosis and she is agreeing that she does require treatment and was able to acknowledge the difficulties that it is caused for her. Patient reports that her focus and concentration are better today after beginning the Abilify yesterday and that she slept well. Patient continues to state that she requires Berlin's for her pain but also acknowledged that it makes her feel energized as well as the fact that opioids have gotten her into much difficulty in the past. Patient is not reporting any side effects from the medication. Plan: Patient will continue on Abilify 10 mg at bedtime, Vistaril 25 mg as needed for anxiety and will discontinue the Ativan tomorrow morning. Patient will continue on Berlin 3 times a day when necessary and I discussed with her that this dose would not be increased. Patient requires continued hosp italization to further stabilize her mood, continued to evaluate response to Abilify and consider titrating the dose.
[2019-03-17] MEDS: MELATONIN 3 MG TABLET PO SCH (20:56)
[2019-03-17] MEDS: ARIPiprazole 10 MG TAB PO SCH (20:56)
[2019-03-18 07:05] VITALS: BP 98/67; PULSE 94; TEMP 98.1
[2019-03-18] MEDS: HYDROcodone/APAP 5-325MG 1 EACH TAB PO PRN (07:41)
[2019-03-18] MEDS: LORazepam 0.5 MG TAB PO PRN (07:41)
[2019-03-18] MEDS: NICOTINE 14MG/24HR PATCH TRANSDERM SCH (09:27)
[2019-03-18] MEDS: HYDROXYCHLOROQUINE SULFATE 200 MG TAB PO SCH (09:28)
--- NOTE | 2019-03-18 12:36 | P.DS ---
Providers Date of admission: 03/15/19 19:57 Expected date of discharge: 03/18/19 Attending physician: Geraldine Martinez MD Consults: 03/15/19 21:13 Consult Physician Routine Consulting Provider: Lisa Spencer Consult Reason/Comments: H&P and medical Do you want consulting provider notified?: Yes Primary care physician: Stated None Hospital Course: Discharge Diagnosis: Bipolar disorder type I, current episode manic, moderate; benzodiazepine use disorder; opioid use disorder Reason for Admission: Patient is a 49-year-old female was brought to the emergency room with racing thoughts, unable to study. Patient states that she stopped taking her medication a year ago, she states that she took the Abilify for a while and states that she [facility] after her discharge here last March. She states that she has not had any admissions since her last admission here one year ago and has only been taking trazodone as an outpatient at night. 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 Patient states that she has not been sleeping, has increased energy but is not productive. She states that she's been more irritable and has been using trazodone to try to help her sleep. She states that she can't focus or concentrate and states her thoughts are jumping from one thing to another. She also reported to me that she can't distinguish what's real or what's not and can't explain it to me. She told me that she feels like I know her well and that she needs to stay on Facebook because she is unsure what's real or not when she is looking at it. Patient states that she is always anxious. Patient is a vague historian about her symptoms patient was admitted here in year ago again under a petition, with delusional ideation, agitated behavior. Patient has no history of suicide attempts. She is unable to give a history of prior symptoms, stating that she doesn't know or recall Mental status on admission: Appearance/Attitude: Patient is casually dressed, makes intermittent eye contact and is superficially cooperative Behavior: Patient does not display any psychomotor agitation or retardation, she is irritable with the questions answering most of them I don't know or I can't recall Speech/Language: Patient's speech is spontaneous of normal volume and rhythm and she is coherent Thought Process: Patient is goal-directed, no evidence of loose association but she complains of racing thoughts stating that her thoughts jump from one idea to another Thought Content: Patient denies any auditory or visual hallucinations, no delusions or paranoid ideation are elicited but the patient reports that she can't tell what's real or not and states that it would take a day for her to explain this to me. Patient states that she not sleeping well, has increased levels of energy and states that she has not been productive. Patient states that she's been more irritable. She states that she's been using trazodone for sleep. Suicidal/Homicidal Ideation: Patient denies any current suicidal or homicidal ideation Sensorium/Cognition: Patient is alert and oriented to person, place and time, she states that she can't focus or concentrate Mood/Affect: Patient's mood is irritable her affect is appropriate to her mood Insight/Judgment: Patient's insight and judgment are limited Hospital Course: Patient was admitted on a voluntary basis, placed on routine observation and group and activity therapy were ordered. Patient also had routine laboratory studies as well as a medical consultation ordered. Patient and I discussed that she would be placed on [place] 5 mg tabs 3 times a day as needed for the first 2 days of her admission and then these would be discontinued, as well as discussed with the patient that I would use Ativan 0.5 mg twice a day as needed for the first 2 days and that that would be discontinued as well. Patient and I discussed continuing her medications for her rheumatoid arthritis. She and I again discussed restarting Abilify which is what she had been placed on at her last admission and she was agreeable to restarting this and she was begun at 10 mg at bedtime. Patient and I also discussed using Vistaril 25 mg 4 times a day as needed to assist with her anxiety and melatonin 3 mg at bedtime to assist with her sleep. 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 Patient states that she was feeling much better, agreed that the Abilify had helped decrease the racing thoughts, improve her focus and concentration and the patient requested to leave the hospital stating that she needed to get back to school. Patient states that she was sleeping better and also complained of having some withdrawal from opiates even though the patient's urine drug screen on admission was negative. Patient states that she sees that she does better on the Abilify and states that she wants to continue with the medications after discharge. Patient was not voicing any suicidal or homicidal ideation at this time and there was no evidence of a psychotic process. Allergies No Known Allergies Allergy (Verified 03/15/19 16:16) Laboratory Last Values WBC 6.0 k/uL (3.8-10.6) 03/16/19 08:29 RBC 4.37 m/uL (3.80-5.40) 03/16/19 08:29 Hgb 12.6 gm/dL (11.4-16.0) 03/16/19 08:29 Hct 40.7 % (34.0-46.0) 03/16/19 08:29 MCV 93.2 fL (80.0-100.0) 03/16/19 08:29 MCH 28.8 pg (25.0-35.0) 03/16/19 08:29 MCHC 30.9 g/dL (31.0-37.0) L 03/16/19 08:29 RDW 14.3 % (11.5-15.5) 03/16/19 08:29 Plt Count 285 k/uL (150-450) 03/16/19 08:29 Neutrophils % 78 % 03/16/19 08:29 Lymphocytes % 15 % 03/16/19 08:29 Monocytes % 5 % 03/16/19 08:29 Eosinophils % 1 % 03/16/19 08:29 Basophils % 0 % 03/16/19 08:29 Neutrophils # 4.7 k/uL (1.3-7.7) 03/16/19 08:29 Lymphocytes # 0.9 k/uL (1.0-4.8) L 03/16/19 08:29 Monocytes # 0.3 k/uL (0-1.0) 03/16/19 08:29 Eosinophils # 0.1 k/uL (0-0.7) 03/16/19 08:29 Basophils # 0.0 k/uL (0-0.2) 03/16/19 08:29 Sodium 141 mmol/L (137-145) 03/16/19 08:29 Potassium 4.0 mmol/L (3.5-5.1) 03/16/19 08:29 Chloride 108 mmol/L (98-107) H 03/16/19 08:29 Carbon Dioxide 25 mmol/L (22-30) 03/16/19 08:29 Anion Gap 8 mmol/L 03/16/19 08:29 BUN 13 mg/dL (7-17) 03/16/19 08:29 Creatinine 0.84 mg/dL (0.52-1.04) 03/16/19 08:29 Est GFR (CKD-EPI)AfAm >90 (>60 ml/min/1.73 sqM) 03/16/19 08:29 Est GFR (CKD-EPI)NonAf 81 (>60 ml/min/1.73 sqM) 03/16/19 08:29 Glucose 169 mg/dL (74-99) H 03/16/19 08:[address] Glu mg/dL 111 03/16/19 08:29 Hemoglobin A1c 5.5 % (4.0-6.0) 03/16/19 08:29 Calcium 9.3 mg/dL (8.4-10.2) 03/16/19 08:29 Total Bilirubin 0.6 mg/dL (0.2-1.3) 03/16/19 08:29 AST 18 U/L (14-36) 03/16/19 08:29 ALT 13 U/L (9-52) 03/16/19 08:29 Alkaline Phosphatase 57 U/L (38-126) 03/16/19 08:29 Total Protein 7.2 g/dL (6.3-8.2) 03/16/19 08:29 Albumin 4.3 g/dL (3.5-5.0) 03/16/19 08:29 Triglycerides 91 mg/dL (<150) 03/16/19 08:29 Cholesterol 148 mg/dL (<200) 03/16/19 08:29 LDL Cholesterol, Calc 92 mg/dL (0-99) 03/16/19 08:29 HDL Cholesterol 38 mg/dL (40-60) L 03/16/19 08:29 TSH 0.519 mIU/L (0.465-4.680) 03/16/19 08:29 Urine Opiates Screen Not Detected (NotDetected) 03/15/19 18:22 Ur Oxycodone Screen Not Detected (NotDetected) 03/15/19 18:22 Urine Methadone Screen Not Detected (NotDetected) 03/15/19 18:22 Ur Propoxyphene Screen Not Detected (NotDetected) 03/15/19 18:22 Ur Barbiturates Screen Not Detected (NotDetected) 03/15/19 18:22 U Tricyclic Antidepress Not Detected (NotDetected) 03/15/19 18:22 Ur Phencyclidine Scrn Not Detected (NotDetected) 03/15/19 18:22 Ur Amphetamines Screen Not Detected (NotDetected) 03/15/19 18:22 U Methamphetamines Scrn Not Detected (NotDetected) 03/15/19 18:22 U Benzodiazepines Scrn Not Detected (NotDetected) 03/15/19 18:22 Urine Cocaine Screen Not Detected (NotDetected) 03/15/19 18:22 U Marijuana (THC) Screen Detected (NotDetected) H 03/15/19 18:22 Discharge Mental Status: Appearance/Attitude: Patient is neatly dressed, makes eye contact and is cooperative. Behavior: Patient does not display any psychomotor agitation or retardation. Speech/Language: Patient speech is spontaneous of normal volume and rhythm and she is coherent. Thought Process: Patient is goal-directed there is no evidence of loose association or flight of ideas Thought Content: Patient denies any auditory or visual hallucinations and no delusions or paranoid ideation or elicited. Patient states that she is feeling much better, not having any racing thoughts and is able to focus and concentrate better. Patient sees that she should stay on the medications and agreed that they were beneficial for her. She states that her sleep has improved and she is not feeling as tired. Patient is also eating well. Suicidal/Homicidal Ideation: Patient denied any current suicidal or homicidal ideation Sensorium/Cognition: Patient is alert and oriented to person, place, and time and her recent and remote memory are grossly intact, patient states her focus and concentration have improved as well. Mood/Affect: Patient's mood is less labile and her affect is appropriate Insight/Judgment: Patient's insight and judgment are fair Risk Assessment: Patient's risk for readmission is moderate should she not be compliant with medication and follow-up care as well as continued to use drugs and/or alcohol Discharge Plan: Patient will return to her home, she will continue on Abilify 10 mg at bedtime, melatonin 3 mg at bedtime and Vistaril 25 mg 4 times a day as needed for anxiety and she will also continue on her plaquenil 200 mg twice a day. Patient was given prescriptions for Abilify, melatonin and Vistaril. Patient was advised to consider coming off of her [place], she was advised to avoid any benzodiazepines, drugs and/or alcohol. Patient was encouraged to be compliant with medication and follow-up care and will [facility] at [facility]. Patient will not be given prescriptions for [place]. Patient Condition at Discharge: Stable Plan - Discharge Summary New Discharge Prescriptions: New ARIPiprazole [Abilify] 10 mg PO HS #14 tab Nicotine 14Mg/24Hr Patch [Habitrol] 1 patch TRANSDERM DAILY patch Melatonin 3 mg PO HS #28 tablet hydrOXYzine PAMOATE [Vistaril] 25 mg PO Q6HR PRN #28 cap PRN Reason: Anxiety Continue Hydrocodone/Acetaminophen [[place] 10-325] 1 tab PO QID Ibuprofen [Motrin] 600 mg PO Q8HR PRN PRN Reason: Pain Hydroxychloroquine Sulfate [Plaquenil] 200 mg PO BID Discontinued traZODone HCL 100 mg PO HS Discharge Medication List Hydrocodone/Acetaminophen [[place] 10-325] 1 tab PO QID 03/13/19 [History] Hydroxychloroquine Sulfate [Plaquenil] 200 mg PO BID 03/15/19 [History] Ibuprofen [Motrin] 600 mg PO Q8HR PRN 03/15/19 [History] ARIPiprazole [Abilify] 10 mg PO HS #14 tab 03/18/19 [Rx] Melatonin 3 mg PO HS #28 tablet 03/18/19 [Rx] Nicotine 14Mg/24Hr Patch [Habitrol] 1 patch TRANSDERM DAILY patch 03/18/19 [Rx] hydrOXYzine PAMOATE [Vistaril] 25 mg PO Q6HR PRN #28 cap 03/18/19 [Rx] Follow up Appointment(s)/Referral(s): intake,intake [Other] - 1 Week None,Stated [Primary Care Provider] - 1-2 days Patient Instructions/Handouts: How to Stop Smoking (DC), Opioid Use Disorder (DC) Activity/Diet/Wound Care/Special Instructions: Keep your follow appointments as scheduled. Continue medications as prescribed. When you need refills of your medications contact your out patient psychiatrist or primary care physician. No alcohol or street drugs. No access to guns or weapons. Crisis line if needed , or go the nearest ER for evaluation. Discharge Disposition: HOME SELF-CARE
== END 2019-03-18 14:16 | disposition home or self-care (01) | DRG 885 ==
LOC: EC 15:37 → 3MHU 19:57
PROVIDERS: ADMIT Psychiatry & Neurology Psychiatry; ATTEND Psychiatry & Neurology Psychiatry
DX: F31.2 Bipolar disorder, current episode manic severe with psychotic features (principal); F17.200 Nicotine dependence, unspecified, uncomplicated; F41.9 Anxiety disorder, unspecified; G89.29 Other chronic pain; M06.9 Rheumatoid arthritis, unspecified; M54.5 Low back pain; F11.90 Opioid use, unspecified, uncomplicated; F13.90 Sedative, hypnotic, or anxiolytic use, unspecified, uncomplicated; Z79.899 Other long term (current) drug therapy; Z81.8 Family history of other mental and behavioral disorders; Z82.61 Family history of arthritis
CPT/HCPCS: 80053; 80061; 80306; 82075; 83036; 84443; 85025; 99285

== ENCOUNTER 2020-04-16 19:42 | Inpatient (IN) | payer MEDICAID, OTHER ==
--- NOTE | 2020-04-16 20:05 | ED ---
General Adult HPI - General Chief complaint: Psychiatric Symptoms Stated complaint: Mental Health Time Seen by Provider: 04/16/20 19:49 Source: patient, family, RN notes reviewed Mode of arrival: ambulatory Limitations: no limitations - History of Present Illness Initial comments: Patient is a pleasant 50-year-old female presenting to the emergency department with concerns for being manic. Patient states symptoms have been present for the past 2 weeks. Patient does have history of similar symptoms previously that have been severe however this is worse. Symptoms started 2 weeks ago this time. Patient states she has not slept in the past week. Patient states she does have racing thoughts and is difficult to concentrate. No suicidal or homicidal thoughts. No new physical complaints. No alcohol or street drug use. - Related Data Home Medications Medication Instructions Recorded Confirmed Hydrocodone/Acetaminophen [[place] 1 tab PO QID 03/13/19 03/15/19 10-325] Hydroxychloroquine Sulfate 200 mg PO BID 03/15/19 03/15/19 [Plaquenil] Ibuprofen [Motrin] 600 mg PO Q8HR PRN 03/15/19 03/15/19 Previous Rx's Medication Instructions Recorded ARIPiprazole [Abilify] 10 mg PO HS #14 tab 03/18/19 Melatonin 3 mg PO HS #28 tablet 03/18/19 Nicotine 14Mg/24Hr Patch [Habitrol] 1 patch TRANSDERM DAILY patch 03/18/19 hydrOXYzine pamoate [Vistaril] 25 mg PO Q6HR PRN #28 cap 03/18/19 Allergies Allergy/AdvReac Type Severity Reaction Status Date / Time No Known Allergies Allergy Verified 04/16/20 19:48 Review of Systems ROS Statement: Those systems with pertinent positive or pertinent negative responses have been documented in the HPI. ROS Other: All systems not noted in ROS Statement are negative. Constitutional: Denies: fever Eyes: Denies: eye pain ENT: Denies: ear pain Respiratory: Denies: cough Cardiovascular: Denies: chest pain Endocrine: Denies: fatigue Gastrointestinal: Denies: abdominal pain Genitourinary: Denies: dysuria Neurological: Denies: headache Psychiatric: Reports: as per HPI Past Medical History Past Medical History: Rheumatoid Arthritis (RA) Additional Past Medical History / Comment(s): back pain History of Any Multi-Drug Resistant Organisms: None Reported Past Surgical History: No Surgical Hx Reported Past Psychological History: Bipolar Smoking Status: Current every day smoker Past Alcohol Use History: Occasional Past Drug Use History: Marijuana - Past Family History Mother Family Medical History: Osteoarthritis (OA) General Exam Limitations: no limitations General appearance: alert, in no apparent distress Head exam: Present: normocephalic Eye exam: Present: normal appearance Neck exam: Present: normal inspection Respiratory exam: Present: normal lung sounds bilaterally Cardiovascular Exam: Present: regular rate, normal rhythm GI/Abdominal exam: Present: soft. Absent: tenderness Extremities exam: Present: normal inspection Neurological exam: Present: alert Psychiatric exam: Present: anxious Skin exam: Present: normal color Course Vital Signs 04/16/20 04/16/20 19:44 20:58 Temperature 98.1 F Pulse Rate 99 Respiratory 20 16 Rate Blood Pressure 143/77 O2 Sat by Pulse 97 Oximetry Medical Decision Making - Medical Decision Making Patient seen by mental health services with plan for admission Disposition Clinical Impression: [place] Disposition: TRANSFER TO PSYCH HOSP/UNIT Is patient prescribed a controlled substance at d/c from ED?: No Referrals: Nonstaff,Physician [Primary Care Provider] - 1-2 days Decision Time: 21:12
[2020-04-16 21:17] LABS: Amphetamine Screen,Urine Not Detected (NotDetected); Barbiturate Screen,Urine Not Detected (NotDetected); Benzodiazepines Screen,Urine Not Detected (NotDetected); Cocaine Screen,Urine Not Detected (NotDetected); Methadone Screen, Urine Not Detected (NotDetected); Opiate Screen,Urine Not Detected (NotDetected); Oxycodone Screen, Urine Not Detected (NotDetected); Phencyclidine Screen,Urine Not Detected (NotDetected); Tricyclic Antidepressant,Urine Not Detected (NotDetected); Urn Cannabinoid Scrn Not Detected (NotDetected)
[2020-04-16] MEDS ORDERED: ZIPRASIDONE 20 MG VIAL IM PRN (21:27)
[2020-04-16] MEDS ORDERED: LORazepam 2 MG/ML INJ IM PRN (21:34)
[2020-04-16] MEDS: LORazepam 1 MG TAB PO PRN (21:54)
[2020-04-16] MEDS: ACETAMINOPHEN TAB 325 MG TAB PO PRN (21:54)
[2020-04-17 07:35] LABS: Anisocytosis Slight; Basophils % (A) 1 %; Eosinophils # (A) 0.2 k/uL (0-0.7); Eosinophils % (A) 3 %; HCT 39.7 % (34.0-46.0); HGB 12.3 gm/dL (11.4-16.0); Hypochromasia Moderate; Lymphocytes # (A) 1.5 k/uL (1.0-4.8); Lymphocytes % (A) 27 %; MCH 28.7 pg (25.0-35.0); MCHC 31.1 g/dL (31.0-37.0); MCV 92.4 fL (80.0-100.0); Mean Platelet Volume 8.4; Monocytes # (A) 0.6 k/uL (0-1.0); Monocytes % (A) 10 %; Neutrophils # (A) 3.2 k/uL (1.3-7.7); Neutrophils % (A) 57 %; Platelet Count 215 k/uL (150-450); RDW 17.1 % (11.5-15.5); WBC 5.6 k/uL (3.8-10.6)
[2020-04-17 07:48] LABS: ALT 17 U/L (4-34); AST 34 U/L (14-36); African American GFR (CKD) >90 (>60 ml/min/1.73 sqM); Albumin 4.2 g/dL (3.5-5.0); Alkaline Phosphatase 94 U/L (38-126); Anion Gap 7 mmol/L; Blood Urea Nitrogen 12 mg/dL (7-17); Calcium 8.6 mg/dL (8.4-10.2); Carbon Dioxide 28 mmol/L (22-30); Chloride 102 mmol/L (98-107); Cholesterol 143 mg/dL (<200); Glucose 101 mg/dL (74-99); HDL Cholesterol 47 mg/dL (40-60); LDL Cholesterol,Calculated 77 mg/dL (0-99); Non-African American GFR(CKD) >90 (>60 ml/min/1.73 sqM); Potassium 4.1 mmol/L (3.5-5.1); Sodium 137 mmol/L (137-145); Total Bilirubin 0.8 mg/dL (0.2-1.3); Triglycerides 94 mg/dL (<150)
[2020-04-17] MEDS: LORazepam 1 MG TAB PO PRN ×2 (10:36→20:02)
[2020-04-17] MEDS ORDERED: MD COMMUNICATION TO PHARMACY 1 EACH MISC PO SCH (11:00)
--- NOTE | 2020-04-17 11:18 | P.HP ---
Psychiatric H&P - . H&P Date: 04/17/20 History & Physical: Allergies Allergy/AdvReac Type Severity Reaction Status Date / Time No Known Allergies Allergy Verified 04/16/20 19:48 Vital Signs Temp 97.8 F 04/17/20 06:34 Pulse 89 04/17/20 06:34 Resp 18 04/17/20 06:34 BP 121/59 04/17/20 06:34 Pulse Ox 95 04/16/20 22:49 Intake & Output 04/16/20 04/17/20 04/17/20 18:59 06:59 18:59 Weight 62.1 kg Laboratory Last Values WBC 5.6 k/uL (3.8-10.6) 04/17/20 07:14 RBC 4.30 m/uL (3.80-5.40) 04/17/20 07:14 Hgb 12.3 gm/dL (11.4-16.0) 04/17/20 07:14 Hct 39.7 % (34.0-46.0) 04/17/20 07:14 MCV 92.4 fL (80.0-100.0) 04/17/20 07:14 MCH 28.7 pg (25.0-35.0) 04/17/20 07:14 MCHC 31.1 g/dL (31.0-37.0) 04/17/20 07:14 RDW 17.1 % (11.5-15.5) H 04/17/20 07:14 Plt Count 215 k/uL (150-450) 04/17/20 07:14 Neutrophils % 57 % 04/17/20 07:14 Lymphocytes % 27 % 04/17/20 07:14 Monocytes % 10 % 04/17/20 07:14 Eosinophils % 3 % 04/17/20 07:14 Basophils % 1 % 04/17/20 07:14 Neutrophils # 3.2 k/uL (1.3-7.7) 04/17/20 07:14 Lymphocytes # 1.5 k/uL (1.0-4.8) 04/17/20 07:14 Monocytes # 0.6 k/uL (0-1.0) 04/17/20 07:14 Eosinophils # 0.2 k/uL (0-0.7) 04/17/20 07:14 Basophils # 0.0 k/uL (0-0.2) 04/17/20 07:14 Hypochromasia Moderate 04/17/20 07:14 Anisocytosis Slight 04/17/20 07:14 Sodium 137 mmol/L (137-145) 04/17/20 07:14 Potassium 4.1 mmol/L (3.5-5.1) 04/17/20 07:14 Chloride 102 mmol/L (98-107) 04/17/20 07:14 Carbon Dioxide 28 mmol/L (22-30) 04/17/20 07:14 Anion Gap 7 mmol/L 04/17/20 07:14 BUN 12 mg/dL (7-17) 04/17/20 07:14 Creatinine 0.65 mg/dL (0.52-1.04) 04/17/20 07:14 Est GFR (CKD-EPI)AfAm >90 (>60 ml/min/1.73 sqM) 04/17/20 07:14 Est GFR (CKD-EPI)NonAf >90 (>60 ml/min/1.73 sqM) 04/17/20 07:14 Glucose 101 mg/dL (74-99) H 04/17/20 07:14 Calcium 8.6 mg/dL (8.4-10.2) 04/17/20 07:14 Total Bilirubin 0.8 mg/dL (0.2-1.3) 04/17/20 07:14 AST 34 U/L (14-36) 04/17/20 07:14 ALT 17 U/L (4-34) 04/17/20 07:14 Alkaline Phosphatase 94 U/L (38-126) 04/17/20 07:14 Total Protein 7.0 g/dL (6.3-8.2) 04/17/20 07:14 Albumin 4.2 g/dL (3.5-5.0) 04/17/20 07:14 Triglycerides 94 mg/dL (<150) 04/17/20 07:14 Cholesterol 143 mg/dL (<200) 04/17/20 07:14 LDL Cholesterol, Calc 77 mg/dL (0-99) 04/17/20 07:14 HDL Cholesterol 47 mg/dL (40-60) 04/17/20 07:14 TSH 2.290 mIU/L (0.465-4.680) 04/17/20 07:14 Urine Opiates Screen Not Detected (NotDetected) 04/16/20 20:56 Ur Oxycodone Screen Not Detected (NotDetected) 04/16/20 20:56 Urine Methadone Screen Not Detected (NotDetected) 04/16/20 20:56 Ur Propoxyphene Screen Not Detected (NotDetected) 04/16/20 20:56 Ur Barbiturates Screen Not Detected (NotDetected) 04/16/20 20:56 U Tricyclic Antidepress Not Detected (NotDetected) 04/16/20 20:56 Ur Phencyclidine Scrn Not Detected (NotDetected) 04/16/20 20:56 Ur Amphetamines Screen Not Detected (NotDetected) 04/16/20 20:56 U Methamphetamines Scrn Not Detected (NotDetected) 04/16/20 20:56 U Benzodiazepines Scrn Not Detected (NotDetected) 04/16/20 20:56 Urine Cocaine Screen Not Detected (NotDetected) 04/16/20 20:56 U Marijuana (THC) Screen Not Detected (NotDetected) 04/16/20 20:56 04/17/20 11:02 HPI: This case is 50-year-old female who has a history of mood swings. 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 However she also has had a couple of episodes of racing and even psychosis. Her depression cleared up about 2 weeks ago and in the interim she has not been able to sleep had racing thoughts can't concentrate starts projects and doesn't finish them says things without thinking first that she later regrets but has not got into buying sprees. Last night was the first time she slept in a couple of weeks and she seems to be heading into the depression again. She is not currently on medications and confesses that she has not been responsible medication taker. Past psychiatric history the patient has had a couple of episodes before and at least on one occasion she was psychotic during the racing episode. She thought there was a bomb in her dogs mouth so she threw the dog out the window. She was seen by psychiatry in 03/03/2018 and although the note is somewhat garbled and something about a cat was wired also she was demonstrating flight of ideas and not able to do ADLs at home at that time she was on Prozac. She also has taken Abilify 20 mg in the past which she thought helped but she was not good at taking it faithfully. She was also on Effexor cannot remember w hat that did. However she has never been on lithium and Depakote Tegretol Trileptal Wellbutrin Lamictal or any other dopamine 2 blockers. She is very discouraged because she feels like if she can't deal with this depression she can't have a life she has not for example been able to work. Medical the patient has some rheumatoid arthritis and chronic back pain she feels somewhat tired and slowed down today Review of systems all systems are negative Surgery none ALLERGIES none Laboratory: On 817 the patient had a hematology where the RDW was slightly up she had general chemistry which was fine urinalysis but she denies any symptoms of infection toxicology was positive for marijuana Vital signs: Temperature 97.9 heart rate 89 respiration 18 blood pressure 121/59 Drug use the patient likes opiates and is currently on Suboxone to stay off of them it was her way of dealing with the chronic depression. Now she is smoking marijuana in addition to the Suboxone Social history the patient is second of 3 children born to her parents and stayed together until dad of medical complications at age 57. She said her mom has some kind of mental illness but she isn't sure what she knows nothing about her grandparents or her extended family. Patient been twice a first for 2 years she has a 30-year-old daughter from that relationship who struggles with moods and anxiety but is engaged to be . Then she was for 12 years as 2 sons from that relationship ages 25 and 22. 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 Mental status exam the patient is a flat serious affect she is good eye contact slow response times difficulty with memory decreased psychomotor activity minimal self-care. No evidence or acknowledgment of any psychotic symptoms. No suicidality or homicidality but a lot of discouragement and feeling like she will never have a life. She says that during one of her mood fluctuations in the past she did get quite suicidal but hasn't been there recently. She was troubled by the fact that her current memory is dysfunctional. She only remember 2 of 3 objects after 3 minutes. Trying to name the presidents she got trump and jump to [place]. Naming the [place] she could name Radha Altamirano admission even when I gave her the first letter she could not get either [place] or [place]. When asked to abstract how cats and snakes are lying she had to think a long time and said they moves slowly and then could not think of any other similarity. Trying to spell world backward she said DL ORW in trying to subtract 7 from 93 she got 85 and complained about why I was doing this to her. Diagnosis: Bipolar 1 depressed Substance use disorder opioids and marijuana Prognosis is fair as the patient says she is now determined to do what it takes to get better. Plan restart the Abilify give her 10 mg tonight and she tolerates it okay go to 20 tomorrow. We will also begin Wellbutrin at 300 mg a day. I reviewed all the different medicines that are effective with bipolar to get her to understand she has not given us a full trial and found that nothing works in fact she is never given anything a proper trial. Also reviewed that a healthy lifestyle with no poisons and no drugs and good sleep and exercise are crucial to doing well.
[2020-04-17] MEDS ORDERED: NICOTINE 14MG/24HR PATCH TRANSDERM SCH (11:30)
[2020-04-17] MEDS: buPROPion XL 300 MG TAB.ER.24H PO SCH (12:02)
[2020-04-17] MEDS: ACETAMINOPHEN TAB 325 MG TAB PO PRN ×2 (12:05→20:02)
[2020-04-17] MEDS: SUBOXONE PO SCH (12:28)
[2020-04-17] MEDS: NICOTINE 21MG/24HR PATCH TRANSDERM SCH (17:01)
[2020-04-17 17:14] LABS: Hemoglobin A1C 5.3 % (4.0-6.0)
--- NOTE | 2020-04-17 18:44 | P.MDCNMH ---
History of Present Illness H&P Date: 04/17/20 Chief Complaint: Medical management 50-year-old female with chronic lower back pain presents to [facility] for concerns of being manic. She has been admitted to mental health unit for further observation and management. [facility], [place] physicians has been consulted for medical management of this patient. Patient was seen and examined. Patient reports chronic lower back pain, 8 out of 10 in severity. She denies any bladder or bowel incontinence. She denies an y saddle anesthesia. She denies any headache, lower extremity edema, nausea or vomiting, fever or chills, cough, chest pain, shortness breath or palpitations. She reports no changes in appetite or weight. She denies any dizziness, numbness/weakness/tingling of the extremities. Her vital signs stable. CBC and CMP within normal limits. Lipid panel is within normal limits. TSH was within normal limits. A1c is within normal limits. UDS is negative. Review of Systems Pertinent positives and negatives as discussed in HPI, a complete review of sy stems was performed and all other systems are negative. Past Medical History Past Medical History: Rheumatoid Arthritis (RA) Additional Past Medical History / Comment(s): back pain History of Any Multi-Drug Resistant Organisms: None Reported Past Surgical History: No Surgical Hx Reported Past Psychological History: Bipolar Smoking Status: Current every day smoker Past Alcohol Use History: Occasional Past Drug Use History: Marijuana - Past Family History Mother Family Medical History: Osteoarthritis (OA) Medications and Allergies Home Medications Medication Instructions Recorded Confirmed Type Hydrocodone/Acetaminophen [[place] 1 tab PO QID 03/13/19 03/15/19 History 10-325] Hydroxychloroquine Sulfate 200 mg PO BID 03/15/19 03/15/19 History [Plaquenil] Ibuprofen [Motrin] 600 mg PO Q8HR PRN 03/15/19 03/15/19 History ARIPiprazole [Abilify] 10 mg PO HS #14 tab 03/18/19 Rx Melatonin 3 mg PO HS #28 tablet 03/18/19 Rx Nicotine 14Mg/24Hr Patch [Habitrol] 1 patch TRANSDERM DAILY patch 03/18/19 Rx hydrOXYzine pamoate [Vistaril] 25 mg PO Q6HR PRN #28 cap 03/18/19 Rx Allergies Allergy/AdvReac Type Severity Reaction Status Date / Time No Known Allergies Allergy Verified 04/16/20 19:48 Physical Exam Vitals: Vital Signs Temp Pulse Pulse Resp BP BP Pulse Ox 04/17/20 06:34 97.8 F 89 18 121/59 04/16/20 22:49 97.8 F 88 16 117/75 95 04/16/20 21:31 16 04/16/20 20:58 16 04/16/20 19:44 98.1 F 99 20 143/77 97 General: [non toxic], [no distress], [appears at stated age] Derm: [warm], [dry] Head: [atraumatic], [normocephalic], [symmetric] Eyes: [EOMI], [no lid lag], [anicteric sclera] Mouth: [no lip lesion], [mucus membranes moist] Cardiovascular: [S1S2 reg], [no murmur], [positive posterior tibial pulse bilateral], Lungs: [CTA bilateral], [no rhonchi, no rales] , [no accessory muscle use] Abdominal: [soft], [ nontender to palpation], [no guarding], [no appreciable organomegaly] Ext: [no gross muscle atrophy], [no edema], [no contractures] Neuro: [ CN II-XI grossly intact], [no focal neuro deficits] Psych: [Alert], [oriented], [appropriate affect] Cranial Nerve Examination - Cranial Nerves Cranial Nerve II- Optic: Intact Cranial Nerve III- Oculomotor: Intact Cranial Nerve IV- Trochlear: Intact Cranial Nerve V- Trigeminal: Intact Cranial Nerve - Abducens: Intact Cranial Nerve VII- Facial: Intact Cranial Nerve VIII- Auditory: Intact Cranial Nerve IX- Glossopharyngeal: Intact Cranial Nerve X- Vagus: Intact Cranial Nerve XI- Accessory: Intact Cranial Nerve XII- Hypoglossal: Intact Results CBC & Chem 7: 04/17/20 07:14 04/17/20 07:14 Labs: Abnormal Lab Results - Last 24 Hours (Table) 04/17/20 04/17/20 Range/Units 07:14 07:14 RDW 17.1 H (11.5-15.5) % Glucose 101 H (74-99) mg/dL Assessment and Plan Assessment: Chronic lower back pain Smoker Insomnia Tylenol as needed for pain. Nicotine patch. Start melatonin. Thank you for this consult. Please call with any additional questions or concerns.
[2020-04-17] MEDS: MELATONIN 3 MG TABLET PO SCH (20:02)
[2020-04-17] MEDS ORDERED: ARIPiprazole 10 MG TAB PO SCH (21:00)
[2020-04-18] MEDS: NICOTINE 21MG/24HR PATCH TRANSDERM SCH (09:02)
[2020-04-18] MEDS: SUBOXONE PO SCH (09:03)
[2020-04-18] MEDS: buPROPion XL 300 MG TAB.ER.24H PO SCH (09:03)
[2020-04-18] MEDS: ACETAMINOPHEN TAB 325 MG TAB PO PRN ×2 (09:04→19:13)
[2020-04-18] MEDS: LORazepam 1 MG TAB PO PRN ×2 (09:06→19:14)
[2020-04-18] MEDS ORDERED: ZOLPIDEM 10 MG TAB PO PRN (09:49)
--- NOTE | 2020-04-18 09:54 | P.PN ---
Subjective Progress Note Date: 04/18/20 Principal diagnosis: Diagnosis: Bipolar 1 depressed Subjective: Patient has a mild symptoms of dry mouth but still did not sleep that well last night. She is afraid if she goes home and doesn't sleep that she will not get better. She did get 10 mg of Abilify does not seem to have any restlessness or dizziness or other side effects. Objective vital signs temperature 98.3 heart rate 78 respiration 18 blood pressure 110/59 room air 97 Labs: Hematology was normal general chemistry normal toxicology negative Staff report patient seems anxious guarded racing thoughts alert denies suicidal or homicidal thoughts interacts well with peers and staff Groups patient has not been attending Mental status exam patient affect is sad and somewhat sleepy. She is cooperative oriented to person place time and circumstance gait and station little slow but otherwise normal decrease psychomotor activity. No evidence of psychosis and she is able to stay on topic. Medications: The patient is on Abilify 10 and she got Wellbutrin 300 yesterday. However it was toward the middle of the day could be one reason why she had a little trouble with sleep. Plan: We are going to increase Abilify to 20 daily at bedtime which is what she is taken with benefit in the past. We are also going to continue the Wellbutrin but she got it in the morning. And I will give her when necessary Ambien to make sure she gets a good night sleep looking for discharge tomorrow Objective - Vital Signs Vital signs: Vital Signs Temp 98.3 F 04/18/20 06:53 Pulse 78 04/18/20 06:53 Resp 18 04/18/20 06:53 BP 110/59 04/18/20 06:53 Pulse Ox 97 04/18/20 06:53 - Labs CBC & Chem 7: 04/17/20 07:14 04/17/20 07:14
[2020-04-18] MEDS: MELATONIN 3 MG TABLET PO SCH (20:44)
[2020-04-19] MEDS: NICOTINE 21MG/24HR PATCH TRANSDERM SCH (08:02)
[2020-04-19] MEDS: LORazepam 1 MG TAB PO PRN (08:03)
[2020-04-19] MEDS: SUBOXONE PO SCH (08:03)
[2020-04-19] MEDS: buPROPion XL 300 MG TAB.ER.24H PO SCH (08:03)
[2020-04-19] MEDS: ACETAMINOPHEN TAB 325 MG TAB PO PRN (08:03)
[2020-04-19 08:10] VITALS: BP 124/74; PULSE 114; RESP 16; TEMP 98.6
--- NOTE | 2020-04-19 08:45 | P.DS ---
Providers Date of admission: 04/16/20 21:23 Expected date of discharge: 04/19/20 Attending physician: Silke Lopez MD Consults: 04/16/20 21:27 Consult Physician Routine Consulting Provider: Lisa Physician Consult Reason/Comments: medical management Do you want consulting provider notified?: Yes Primary care physician: Physician Nonstaff Hospital Course: Patient was admitted on 04/16 discharged on 819. She came in on a voluntary basis ready to talk and work. She identified clear mood swing history mostly depression and a lot of discouragement as a result. She has been on a high for the 2 weeks prior to admission and then began to slow down and go toward a depression during her stay. I reviewed all of her medication usage in the past. She confessed to not being dependable in taking her medications. However she remembered she had done better on Abilify 20 mg. So I gave her 10 Friday and then 20 the next which she tolerated well. However there main complaint over time is lack of energy and drive his patient when depressed and the depression is routinely worse in the winter. As a result I suggested she try Wellbutrin which is good both for seasonal affective disorder and for energy and focus and rarely causes marah. The first night after we gave the Wellbutrin toward noon she had trouble sleeping otherwise she has been sleeping better. She attended groups she was spontaneous compliant verbal with patients and staff did not need much redirection Staff assessment is that the patient was appropriate in interactions with peers and staff somewhat circumstantial and vague but cooperative oriented to person place time and circumstance and took reasonable care of her ADLs. Mental status exam patient is alert oriented 4 cooperative good self-care initiates obtaining in taking her medications no evidence of psychosis she is not tearful or aggressive denies suicidal or homicidal thoughts and voices understanding the need for an commitment to taking her medications. Gait and station are normal psychomotor activity is normal Plan in addition to medications the patient will be in counseling and also have regular appointments to every noon and check on the benefit of her medications. She understands that the Abilify works fast but the Wellbutrin is likely to take 2-4 weeks before she sees benefit The patient reports that she didn't sleep really well last night but her roommate was agitated and needed a one-on-one. She says when she took the Ambien she felt sleepy but was overcome by all the noise. So give her 2 weeks of Ambien will await further Abilify to calm down her modes enough for her to sleep well on her own Assessment: The patient came in on a voluntary basis. She attended groups and cooperated with medication adjustment retained information that was given to her and is leaving much improved and more hopeful Health Concerns: Upon admission the patient denied any review of systems complaints he has a history of rheumatoid arthritis and did have low chronic back pain but nothing new or acute she was a chronic smoker and was given help to avoid withdrawal. Pertinent Studies: Basic labs were run when she came in hematology was normal general chemistry normal and drug screen was negative Procedures: None Patient Condition at Discharge: Good Plan - Discharge Summary New Discharge Prescriptions: New ARIPiprazole [Abilify] 20 mg PO HS 30 Days #30 tab Zolpidem [Ambien] 10 mg PO HS PRN 14 Days #14 tab PRN Reason: Insomnia buPROPion XL [Wellbutrin XL] 300 mg PO DAILY 30 Days #30 tab.er.24h Continue Ibuprofen [Motrin] 600 mg PO Q8HR PRN PRN Reason: Pain Hydroxychloroquine Sulfate [Plaquenil] 200 mg PO BID hydrOXYzine pamoate [Vistaril] 25 mg PO Q6HR PRN #28 cap PRN Reason: Anxiety Discontinued Hydrocodone/Acetaminophen [[place] 10-325] 1 tab PO QID ARIPiprazole [Abilify] 10 mg PO HS #14 tab Nicotine 14Mg/24Hr Patch [Habitrol] 1 patch TRANSDERM DAILY patch Melatonin 3 mg PO HS #28 tablet Discharge Medication List Hydroxychloroquine Sulfate [Plaquenil] 200 mg PO BID 03/15/19 [History] Ibuprofen [Motrin] 600 mg PO Q8HR PRN 03/15/19 [History] ARIPiprazole [Abilify] 20 mg PO HS 30 Days #30 tab 04/19/20 [Rx] Zolpidem [Ambien] 10 mg PO HS PRN 14 Days #14 tab 04/19/20 [Rx] buPROPion XL [Wellbutrin XL] 300 mg PO DAILY 30 Days #30 tab.er.24h 04/19/20 [Rx] hydrOXYzine pamoate [Vistaril] 25 mg PO Q6HR PRN #28 cap 04/19/20 [Rx] Follow up Appointment(s)/Referral(s): Nonstaff,Physician [Primary Care Provider] - 1-2 days Activity/Diet/Wound Care/Special Instructions: Activity and diet as tolerated. Avoid the use of street drugs and alcohol. Take all medications as prescribed. When you are in need of refills on your medications please contact your medical provider and/or outpatient psychiatrist to have this done. Please go to scheduled outpatient appointment for aftercare treatment. If symptoms return or become worse, call the crisis line at and/or go to the nearest emergency room for evaluation.
== END 2020-04-19 12:54 | disposition home or self-care (01) | DRG 885 ==
LOC: EC 19:42 → 3MHU 21:23
PROVIDERS: ADMIT Psychiatry & Neurology Psychiatry; ATTEND Psychiatry & Neurology Psychiatry
DX: F31.30 Bipolar disorder, current episode depressed, mild or moderate severity, unspecified (principal); G89.29 Other chronic pain; M06.9 Rheumatoid arthritis, unspecified; F17.200 Nicotine dependence, unspecified, uncomplicated; G47.00 Insomnia, unspecified; Z79.899 Other long term (current) drug therapy; Z82.61 Family history of arthritis
CPT/HCPCS: 80053; 80061; 80306; 82075; 83036; 84443; 85025; 99285

== ENCOUNTER → 2020-07-24 | Outpatient (CLI) | payer OTHER ==
[2020-07-24 14:45] LABS: Basophils % (A) 1 %; Eosinophils # (A) 0.1 k/uL (0-0.7); Eosinophils % (A) 2 %; HCT 38.2 % (34.0-46.0); HGB 12.4 gm/dL (11.4-16.0); Hypochromasia Slight; Lymphocytes # (A) 1.1 k/uL (1.0-4.8); Lymphocytes % (A) 16 %; MCH 30.6 pg (25.0-35.0); MCHC 32.6 g/dL (31.0-37.0); MCV 93.9 fL (80.0-100.0); Monocytes # (A) 0.5 k/uL (0-1.0); Monocytes % (A) 7 %; Neutrophils % (A) 73 %; Platelet Count 197 k/uL (150-450); RBC 4.07 m/uL (3.80-5.40); RDW 15.5 % (11.5-15.5); WBC 6.9 k/uL (3.8-10.6)
[2020-07-24 18:26] LABS: ALT 11 U/L (8-44); AST 17 U/L (13-35); African American GFR (CKD) 85.2 (60.0-200.0); Albumin/Globulin Ratio 1.86 (1.60-3.17); Alkaline Phosphatase 76 U/L (41-126); BUN/Creat Ratio 18.89 Ratio (12.00-20.00); Bilirubin, Conjugated <0.20 mg/dL (0.20-0.40); Calcium 8.6 mg/dL (8.7-10.3); Carbon Dioxide 27.6 mmol/L (21.6-31.8); Chloride 107 mmol/L (96-109); Chol/HDL Ratio 3.52; Cholesterol 155 mg/dL (0-200); Globulin 2.2 g/dL (1.6-3.3); Glucose 103 mg/dL (70-110); LDL Cholesterol,Calculated 76.6 mg/dL (0.0-131.0); Non-African American GFR(CKD) 73.5 (60.0-200.0); Potassium 4.1 mmol/L (3.5-5.5); Sodium 140 mmol/L (135-145); Total Bilirubin 0.2 mg/dL (0.3-1.2); Total Protein 6.3 g/dL (6.2-8.2)
[2020-07-24 18:34] LABS: Prolactin 12.8 ng/mL (2.8-29.2)
[2020-07-25 00:24] LABS: Hemoglobin A1C 5.3 % (4.0-6.0)
== END | disposition home or self-care (01) ==
LOC: LABWHC1 11:17
PROVIDERS: ATTEND Psychiatry & Neurology Psychiatry
DX: Z51.81 Encounter for therapeutic drug level monitoring (principal); Z79.899 Other long term (current) drug therapy
CPT/HCPCS: 36415; 80053; 80061; 82248; 82306; 83036; 84146; 84439; 84443; 85025

== ENCOUNTER → 2022-09-27 | Outpatient (CLI) | payer OTHER ==
--- NOTE | 2022-09-30 11:17 | MM ---
Reason for Exam: Screening (asymptomatic). Last mammogram was performed 4 year(s) and 11 month(s) ago. Patient History: Menarche at age 11. First Full-Term at age 19. Perimenopausal. Patient used Hormonal Contraceptives for 2 years. Maternal grandmother had breast cancer, age 49. Risk Values: Valarie 5 year model risk: 1.0%. NCI Lifetime model risk: 7.5%. Prior Study Comparison: 05/19/2015 Bilateral Screening Mammogram, [facility]. 05/25/2015 Left Diagnostic Mammogram, [facility]. 10/22/2017 Bilateral Screening Mammogram, [facility]. Tissue Density: There are scattered fibroglandular densities. Findings: Analyzed By CAD. There is no suspicious new group of microcalcifications or new suspicious mass in either breast. Overall Assessment: Negative, BI-RAD 1 Management: Screening Mammogram of both breasts in 1 year. A clinical breast exam by your physician is recommended on an annual basis and results should be correlated with mammographic findings. Electronically signed and approved by: Lane Fong M.D.
== END | disposition home or self-care (01) ==
LOC: RADMAMWWP 15:22
PROVIDERS: ATTEND Pediatrics
DX: Z12.31 Encounter for screening mammogram for malignant neoplasm of breast (principal); Z80.3 Family history of malignant neoplasm of breast
CPT/HCPCS: 77063; 77067

== ENCOUNTER → 2023-09-09 | Outpatient (CLI) | payer OTHER ==
[2023-09-09 13:29] VITALS: BP 123/82; PULSE 105; RESP 16; TEMP 98.3
--- NOTE | 2023-09-09 14:25 | P.HPOB ---
History of Present Illness H&P Date: 09/09/23 Chief Complaint: The patient is here for her routine gynecologic exam. This is a 53-year-old with an LMP of 08/22/2023. The patient is here to establish with this office. Her last pelvic exam was in 2018. She had some menstrual irregularity last year where she went 4-5 months without a menstrual period in the summer of 2022. She has had regular menstrual periods during the past 2 months. She denies hot flashes. She is otherwise without gynecologic complaints. Review of Systems The patient has gained about 30 pounds over the last 3 years. She denies respiratory, cardiac, or G.I. problems. Past Medical History Past Medical History: Rheumatoid Arthritis (RA) Additional Past Medical History / Comment(s): back pain. 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 History of Any Multi-Drug Resistant Organisms: None Reported Past Surgical History: No Surgical Hx Reported Past Anesthesia/Blood Transfusion Reactions: No Reported Reaction, Unable to Obtain Past Psychological History: Anxiety, Depression Smoking Status: Current every day smoker (Half a pack per day) Past Alcohol Use History: Occasional (1 drink per month) Past Drug Use History: Marijuana (She denies current use.) Additional History: She is and has been with her current boyfriend since 2006 and they live together. 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 - Past Family History Mother Family Medical History: Cancer, Osteoarthritis (OA) Additional Family Medical History / Comment(s): Lung cancer. Maternal grandmother had breast cancer. Father Family Medical History: Diabetes Mellitus Additional Family Medical History / Comment(s): Vasculitis. Sister(s) Family Medical History: Diabetes Mellitus Medications and Allergies Home Medications Medication Instructions Recorded Confirmed Type Hydroxychloroquine Sulfate 200 mg PO BID 03/15/19 09/09/23 History [Plaquenil] Ibuprofen [Motrin] 600 mg PO Q8HR PRN 03/15/19 09/09/23 History Cariprazine HCl [Vraylar] 3 mg PO DAILY 09/09/23 09/09/23 History Allergies Allergy/AdvReac Type Severity Reaction Status Date / Time No Known Allergies Allergy Verified 09/09/23 13:19 Exam Vital Signs Temp Pulse Resp BP Pulse Ox 09/09/23 13:20 98.3 F 105 H 16 123/82 96 Intake and Output 09/08/23 09/09/23 09/09/23 22:59 06:59 14:59 Other: Weight 79.379 kg Height 5 feet 7 inches, weight 175 pounds, BMI 27.4. This is a well-developed well-nourished white female who is alert and oriented times 3 in no acute distress. HEENT: Within normal limits. NECK: Supple without mass or thyromegaly. CHEST AND LUNGS: Clear to auscultation. HEART: Regular rate and rhythm. BREASTS: Are without mass or discharge. AXILLARY EXAM: Negative for adenopathy. BACK: Negative for CVA tenderness. There is a slightly annular lesion partially 2.5 x 2.0 cm on the central back consistent with seborrheic keratosis. ABDOMEN: Soft, nontender, without palpable masses. PELVIC EXAM: Normal external genitalia. Cervix has the appearance as if she may have had a cone biopsy or LEEP procedure although she denies any previous issues with her Pap smears in the past. There are no lesions noted. There is no unusual discharge. There is no evidence of prolapse. The uterus is midposition, nongravid size and nontender. There are no palpable adnexal masses or tenderness. RECTAL EXAM: Rectovaginal exam is negative for mass or tenderness and is negative for occult blood. EXTREMITIES: Nontender. IMPRESSION: 1. 53-year-old perimenopausal female with recent oligomenorrhea without significant vasomotor symptoms. Normal gynecologic exam. 2. Back skin lesion consistent with seborrheic keratosis measuring 2.5 x 2.0 cm. PLAN: 1. Pap smear cotest was performed. 2. Self breast awareness was discussed with the patient. We have also discussed symptoms associated with inflammatory breast cancer. 3. Screening mammogram will be due after 09/27/2023 and the order slip was given to the patient for this. 4. I have recommended that she establish with a publication director to reevaluate the lesion on her back because of its size and since this is the only one that I see on her body. She states she will do this. 5. Osteoporosis prevention was discussed. I have stressed the importance of adequate calcium, vitamin D and regular exercise. Recommended amounts of calcium and vitamin D were also discussed. 6. I have recommended that she keep a menstrual calendar. She will call if she is having menstrual problems. 7. We've discussed colorectal cancer screening and she states she plans to discuss the options with her PCP. 8. I recommended that she try to quit smoking and we discussed many reasons why this is important. 9. She was advised to return in one year for her annual well woman exam.
== END ==
LOC: WWCWWP 13:09
PROVIDERS: ATTEND Obstetrics & Gynecology
DX: N91.5 Oligomenorrhea, unspecified (principal); L82.1 Other seborrheic keratosis; M06.9 Rheumatoid arthritis, unspecified; F41.9 Anxiety disorder, unspecified; F32.A Depression, unspecified; F17.210 Nicotine dependence, cigarettes, uncomplicated; F12.90 Cannabis use, unspecified, uncomplicated; Z78.0 Asymptomatic menopausal state

== ENCOUNTER → 2025-03-28 | Outpatient (CLI) | payer OTHER ==
--- NOTE | 2025-03-28 18:14 | MM ---
Reason for Exam: Screening (asymptomatic). Last mammogram was performed 2 year(s) and 6 month(s) ago. Patient History: Menarche at age 11. First Full-Term at age 19. Perimenopausal. Patient used Hormonal Contraceptives for 2 years. Maternal grandmother had breast cancer, age 49. Last menstrual period: Risk Values: Valarie 5 year model risk: 1.1%. NCI Lifetime model risk: 7.1%. Prior Study Comparison: 05/25/2015 Left Diagnostic Mammogram, [facility]. 10/22/2017 Bilateral Screening Mammogram, [facility]. 09/27/2022 Bilateral MG 3D screening mammo w/cad, [facility]. Tissue Density: There are scattered areas of fibroglandular density. Findings: Analyzed By CAD. There is no suspicious group of microcalcifications or new suspicious mass in either breast. Overall Assessment: Negative, BI-RAD 1 Management: Screening Mammogram of both breasts in 1 year. Patient should continue monthly self-breast exams. A clinical breast exam by your physician is recommended on an annual basis. This exam should not preclude additional follow-up of suspicious palpable abnormalities. Note on Valarie scores and lifetime risk: 1. A Valarie score greater than 3% is considered moderate risk. If this is the case, consider specialist referral to assess eligibility for a risk reducing agent. 2. If overall lifetime risk for the development of breast cancer is 20% or higher, the patient may qualify for future screening with alternating mammogram and breast MRI. [facility], , 03/28/2025 6:11 PM. Electronically signed and approved by: Geeta Richards M.D. Radiologist
== END | disposition home or self-care (01) ==
LOC: RADMAMWWP 14:50
PROVIDERS: ATTEND Pediatrics
DX: Z12.31 Encounter for screening mammogram for malignant neoplasm of breast (principal); R92.323 Mammographic fibroglandular density, bilateral breasts; Z80.3 Family history of malignant neoplasm of breast; Z92.0 Personal history of contraception
CPT/HCPCS: 77063; 77067